=== PATIENT | male | born 1955 ===

== ENCOUNTER 2016-12-10 20:26 | Inpatient (IN) | payer MEDICARE, MEDICAID ==
[2016-12-10 20:37] VITALS: BMI 29.5
[2016-12-10] MEDS ORDERED: HEPARIN SODIUM PORCINE 5000 UNIT SC SCH (23:45)
--- NOTE | 2016-12-10 23:51 | CP.PCM.HP ---
History of Present Illness - History of Present Illness History of Present Illness: CC: Rehab after CVA (L mid frontal lobe) HPI: 61 y/o male with MHx significant for HTN, HLD, ?CKD4 and DM2 who comes to [facility] from [place] for rehab after he was admitted there for CVA as well as for a UTI. Briefly, patient was admitted to [facility] on 12/06/16 for slurred speech of sudden onset upon waking from sleep. He did not receive TPA. He had imaging consistent with CVA, and continues to have some slurred speech but denies any assymetric weakness or gait abnormality. Was noted to apparently have seizures and started on AEDs. He is not a very clear historian. Denies any CP/SOB at this time. Only other complaint is L knee pain which he says is chronic. CT head at [facility]: no acute findings MRI: L mid frontal lobe infarct Carotid dopplers: 20-39% proximal ICA stenoses EEG b/l diffuse cerebral dysfunction ROS: 14 systems reviewed, negative other than HPI MHx: DM2, HTN, HLD, back pain, ?CKD4, and ?seizures new onset SHx: b/l knee surgeries, failed LUE fistula Allergies: NKDA Medications: As per med rec Family Hx: unable to provide any relevant family history upon review Social Hx: Lives at home with family, does drink EtOH but does not quantify amount, no tobacco Surrogate: As per chart, Lo Dos Santos Present on Admission - Present on Admission Any Indicators Present on Admission: No Past Patient History - Past Medical History & Family History Past Medical History?: Yes - Past Social History Smoking Status: Former Smoker - CARDIAC Hx Hypercholesterolemia: Yes Hx Hypertension: Yes - NEUROLOGICAL HX Cerebrovascular Accident: Yes (12/04/2016: Acute infarct @Left midfrontal lobe ) - HEENT Other/Comment: - Vision changes left eye x 2 months; seen retinal specialist. - RENAL Hx Chronic Kidney Disease: Yes (Renal disease (not on HD)) Hx Dialysis: No Hx Kidney Stones: No Hx Neurogenic Bladder: No Hx Pyelonephritis: No Hx Renal (Kidney) Cancer: No Hx Renal Failure: No Other/Comment: - Left arm shunt non-function x 3 years - ENDOCRINE/METABOLIC Hx Diabetes Mellitus Type 2: Yes - HEMATOLOGICAL/ONCOLOGICAL Hx Blood Transfusions: Yes Hx Blood Transfusion Reaction: No - MUSCULOSKELETAL/RHEUMATOLOGICAL Hx Arthritis: Yes (Affects her hands and knees) Hx Back Pain: Yes (Chronic Back Pain (has "Sciatica")) Hx Falls: No Hx Gout: Yes - PSYCHIATRIC Hx Substance Use: No - SURGICAL HISTORY Other/Comment: - left AV shunt - ANESTHESIA Hx Anesthesia: Yes Hx Anesthesia Reactions: No Hx Malignant Hyperthermia: No Has any member of the family had a problem w/ anesthesia?: No Meds Allergies/Adverse Reactions: Allergies Allergy/AdvReac Type Severity Reaction Status Date / Time No Known Allergies Allergy Verified 12/10/16 20:37 Physical Exam - Constitutional Appears: No Acute Distress - Head Exam Head Exam: ATRAUMATIC, NORMOCEPHALIC - Eye Exam Eye Exam: EOMI, PERRL - ENT Exam ENT Exam: Mucous Membranes Moist - Neck Exam Neck exam: Positive for: Full Rom - Respiratory Exam Respiratory Exam: Clear to Auscultation Bilateral, NORMAL BREATHING PATTERN - Cardiovascular Exam Cardiovascular Exam: REGULAR RHYTHM, +S1, +S2 - GI/Abdominal Exam GI & Abdominal Exam: Normal Bowel Sounds, Soft - Extremities Exam Additional comments: senior applications architect is weak, but it appears to be so bilaterally-- unclear if patient is making full effort, LE exam difficult as patient c/o knee pain when trying to assess LLE - Neurological Exam Neurological exam: Alert, CN II-XII Intact, Oriented x3 Additional comments: Possible slurred speech, but not clear what patient's baseline is - Psychiatric Exam Psychiatric exam: Normal Affect, Normal Mood Results - Labs Labs: Laboratory Results - last 24 hr 12/10/16 21:57 POC Glucose (mg/dL) 89 Assessment & Plan (1) CVA (cerebral vascular accident) Assessment and Plan: 61 y/o male s/p R CVA with residual speech deficits and possible L sided weakness. 1) CVA/HTN/HLDSeizures -Cont ASA, Statin -Cont current BP medications for now; titrate as indicated based on BP -Speech eval -PT eval -Modified dysphagia diet -Continue Keppra for seizures 500 PO BID -Consult neuro 2) DM2 -A1c in AM -Full labs to check for renal function and liver function in AM -If taking good PO in AM, can consider starting LA insulin vs PO agent 3) UTI -- continue ampicillin as started in [facility] for UTI 4) DVT PPx -- SQ Heparin for now Status: Acute (2) HTN (hypertension) Status: Acute (3) HLD (hyperlipidemia) Status: Acute (4) DM2 (diabetes mellitus, type 2) Status: Acute (5) DVT prophylaxis Status: Acute
[2016-12-11] MEDS: Insulin Lispro (humaLOG) 100 Units/ml Inj SC SCH ×4 (06:30→22:00)
[2016-12-11 07:59] LABS: ALB/GLOB RATIO 0.7 (1.0-2.1); BILIRUBIN,TOTAL 0.6 mg/dl (0.2-1.3); CALCIUM 9.7 mg/dL (8.4-10.2); POTASSIUM 4.5 MMOL/L (3.6-5.0); TOTAL PROTEIN 8.1 G/DL (6.3-8.2)
[2016-12-11 08:06] LABS: HEMATOCRIT 29.9 % (35.0-51.0); MEAN CELL VOLUME 84.4 fl (80.0-94.0); MEAN CORPUSCULAR HEMOGLOBIN 27.6 pg (27.0-31.0); MEAN CORPUSCULAR HGB CONC 32.7 g/dL (33.0-37.0); RED CELL DISTRIBUTION WIDTH 16.7 % (11.5-14.5); WHITE BLOOD COUNT 7.9 K/uL (4.8-10.8)
[2016-12-11] MEDS: Lidocaine 5% Patch TD SCH (08:37)
[2016-12-11] MEDS ORDERED: Patient's Own Med (Ferrous Sulfate [Feosol] 324 MG) PO SCH (09:00)
[2016-12-11] MEDS ORDERED: NEBIVOLOL 5 MG PO SCH (09:00)
[2016-12-11 09:15] LABS: PARTIAL THROMBOPLASTIN TIME 36.9 SECONDS (23.3-32.5)
--- NOTE | 2016-12-11 15:40 | CP.PCM.PN ---
Subjective - Date & Time of Evaluation Date of Evaluation: 12/11/16 Time of Evaluation: 15:39 - Subjective Subjective: left CVA right HP Objective - Vital Signs/Intake and Output Vital Signs (last 24 hours): Temp Pulse Resp BP Pulse Ox 98.4 F 98 H 20 122/72 97 12/11/16 08:20 12/11/16 08:43 12/11/16 08:20 12/11/16 08:43 12/11/16 08:12 - Medications Medications: Current Medications Acetaminophen (Tylenol 325mg Tab) 650 mg PO Q6H PRN PRN Reason: .Pain (4-10) Last Admin: 12/11/16 07:20 Dose: 650 mg Ampicillin (Ampicillin) 250 mg PO QID [facility] Last Admin: 12/11/16 11:30 Dose: 250 mg Aspirin (Ecotrin) 81 mg PO DAILY [facility] Last Admin: 12/11/16 08:37 Dose: 81 mg Atorvastatin Calcium (Lipitor) 40 mg PO DIN [facility] Docusate Sodium (Colace) 100 mg PO BID [facility] Last Admin: 12/11/16 08:37 Dose: 100 mg Fenofibrate (Tricor) 145 mg PO DAILY [facility] Last Admin: 12/11/16 10:13 Dose: 145 mg Ferrous Sulfate (Feosol) 325 mg PO BID [facility] Last Admin: 12/11/16 08:37 Dose: 325 mg Heparin Sodium (Porcine) (Heparin) 5,000 units SC Q8 [facility] PRN Reason: Protocol Last Admin: 12/11/16 11:29 Dose: 5,000 units Insulin Human Lispro (Humalog) 0 units SC ACHS [facility] PRN Reason: Protocol Last Admin: 12/11/16 11:30 Dose: Not Given Levetiracetam (Keppra) 500 mg PO BID [facility] Last Admin: 12/11/16 11:29 Dose: 500 mg Lidocaine (Lidoderm) 1 ea TD DAILY [facility] Last Admin: 12/11/16 08:37 Dose: 1 ea Metoprolol Tartrate (Lopressor) 25 mg PO Q12 [facility] Last Admin: 12/11/16 08:43 Dose: 25 mg Sodium Bicarbonate (Sodium Bicarbonate Tab) 650 mg PO DAILY [facility] Last Admin: 12/11/16 11:29 Dose: 650 mg - Labs Labs: 12/11/16 07:16 12/11/16 07:16 PT 12.0 SECONDS (9.6-11.2) H 12/11/16 07:16 INR 1.15 (0.92-1.08) H 12/11/16 07:16 APTT 36.9 SECONDS (23.3-32.5) H 12/11/16 07:16 Physiatry Overall Plan of Care - Overall Plan of Care Estimated Length of Stay in Weeks: 3 Rehab Impairment: Mobility, Gait, Balance, Coordination Etiologic Diagnosis: Cerebrovascular Accident (compounded by left LE gout symptoms) Rehab/Medical Prognosis: Fair - Anticipated Interventions Physical Therapy:: Yes Occupational Therapy:: Yes Speech Therapy:: No Recreational Therapy:: Yes - Therapy Goals Bed Mobility: Supervision Ambulation: Supervision Functional Positional Changes:: Supervision - Discharge Plan Discharge Destination: Home
--- NOTE | 2016-12-11 15:42 | CP.PCM.CON ---
History of Present Illness - History of Present Illness History of Present Illness: Dr Lebron PMR consultation on Caleb Fajardo, born 1955, who has been admitted to [facility] for acute inpatient rehabilitation. His presentation is complicated by a left LE gout flare up. Review of Systems - Constitutional Constitutional: absent: Anorexia, Chills - EENT Ears: absent: Ear Discharge, Ear Pain, Tinnitus Nose/Mouth/Throat: absent: Epistaxis, Nasal Congestion - Cardiovascular Cardiovascular: absent: Chest Pain, Chest Pain at Rest - Respiratory Respiratory: absent: Dyspnea, Hemoptysis - Gastrointestinal Gastrointestinal: absent: Abdominal Pain, Belching - Musculoskeletal Musculoskeletal: Arthralgias - Integumentary Integumentary: absent: Bleeding Lesions - Neurological Neurological: absent: Abnormal Movements, Paresthesias, Radicular Pain Past Patient History - Past Medical History & Family History Past Medical History?: Yes - Past Social History Smoking Status: Former Smoker Home Situation {Lives}: With Family - CARDIAC Hx Hypercholesterolemia: Yes Hx Hypertension: Yes - NEUROLOGICAL HX Cerebrovascular Accident: Yes (12/04/2016: Acute infarct @Left midfrontal lobe ) - HEENT Other/Comment: - Vision changes left eye x 2 months; seen retinal specialist. - RENAL Hx Chronic Kidney Disease: Yes (Renal disease (not on HD)) Hx Dialysis: No Hx Kidney Stones: No Hx Neurogenic Bladder: No Hx Pyelonephritis: No Hx Renal (Kidney) Cancer: No Hx Renal Failure: No Other/Comment: - Left arm shunt non-function x 3 years - ENDOCRINE/METABOLIC Hx Diabetes Mellitus Type 2: Yes - HEMATOLOGICAL/ONCOLOGICAL Hx Blood Transfusions: Yes Hx Blood Transfusion Reaction: No - MUSCULOSKELETAL/RHEUMATOLOGICAL Hx Arthritis: Yes (Affects her hands and knees) Hx Back Pain: Yes (Chronic Back Pain (has "Sciatica")) Hx Falls: No Hx Gout: Yes - PSYCHIATRIC Hx Substance Use: No - SURGICAL HISTORY Other/Comment: - left AV shunt - ANESTHESIA Hx Anesthesia: Yes Hx Anesthesia Reactions: No Hx Malignant Hyperthermia: No Has any member of the family had a problem w/ anesthesia?: No Meds Allergies/Adverse Reactions: Allergies Allergy/AdvReac Type Severity Reaction Status Date / Time No Known Allergies Allergy Verified 12/10/16 20:37 - Medications Medications: Current Medications Acetaminophen (Tylenol 325mg Tab) 650 mg PO Q6H PRN PRN Reason: .Pain (4-10) Last Admin: 12/11/16 07:20 Dose: 650 mg Ampicillin (Ampicillin) 250 mg PO QID [facility] Last Admin: 12/11/16 11:30 Dose: 250 mg Aspirin (Ecotrin) 81 mg PO DAILY [facility] Last Admin: 12/11/16 08:37 Dose: 81 mg Atorvastatin Calcium (Lipitor) 40 mg PO DIN [facility] Docusate Sodium (Colace) 100 mg PO BID [facility] Last Admin: 12/11/16 08:37 Dose: 100 mg Fenofibrate (Tricor) 145 mg PO DAILY [facility] Last Admin: 12/11/16 10:13 Dose: 145 mg Ferrous Sulfate (Feosol) 325 mg PO BID [facility] Last Admin: 12/11/16 08:37 Dose: 325 mg Heparin Sodium (Porcine) (Heparin) 5,000 units SC Q8 [facility] PRN Reason: Protocol Last Admin: 12/11/16 11:29 Dose: 5,000 units Insulin Human Lispro (Humalog) 0 units SC ACHS [facility] PRN Reason: Protocol Last Admin: 12/11/16 11:30 Dose: Not Given Levetiracetam (Keppra) 500 mg PO BID [facility] Last Admin: 12/11/16 11:29 Dose: 500 mg Lidocaine (Lidoderm) 1 ea TD DAILY [facility] Last Admin: 12/11/16 08:37 Dose: 1 ea Metoprolol Tartrate (Lopressor) 25 mg PO Q12 [facility] Last Admin: 12/11/16 08:43 Dose: 25 mg Sodium Bicarbonate (Sodium Bicarbonate Tab) 650 mg PO DAILY [facility] Last Admin: 12/11/16 11:29 Dose: 650 mg Physical Exam - Constitutional Appears: Non-toxic, No Acute Distress - Head Exam Head Exam: ATRAUMATIC, NORMAL INSPECTION, NORMOCEPHALIC - Eye Exam Eye Exam: EOMI - ENT Exam ENT Exam: Mucous Membranes Moist - Respiratory Exam Respiratory Exam: NORMAL BREATHING PATTERN - Cardiovascular Exam Cardiovascular Exam: REGULAR RHYTHM - GI/Abdominal Exam GI & Abdominal Exam: absent: Distended, Firm - Extremities Exam Extremities exam: Positive for: joint swelling (left knee and ankle pain) - Neurological Exam Neurological exam: Alert, CN II-XII Intact, Oriented x3 - Psychiatric Exam Psychiatric exam: Normal Affect, Normal Mood Results - Vital Signs Recent Vital Signs: Last Vital Signs Temp 98.4 F 12/11/16 08:20 Pulse 98 H 12/11/16 08:43 Resp 20 12/11/16 08:20 BP 122/72 12/11/16 08:43 Pulse Ox 97 12/11/16 08:12 - Labs Result Diagrams: 12/11/16 07:16 12/11/16 07:16 Labs: Laboratory Results - last 24 hr 12/10/16 12/11/16 12/11/16 21:57 06:12 07:16 WBC 7.9 RBC 3.54 L Hgb 9.8 L Hct 29.9 L MCV 84.4 MCH 27.6 MCHC 32.7 L RDW 16.7 H Plt Count 312 PT 12.0 H INR 1.15 H APTT 36.9 H Sodium 142 Potassium 4.5 Chloride 106 Carbon Dioxide 19 L Anion Gap 22 H BUN 48 H Creatinine 2.5 H Est GFR ( Amer) 32 Est GFR (Non-Af Amer) 26 POC Glucose (mg/dL) 89 94 Random Glucose 105 Calcium 9.7 Total Bilirubin 0.6 AST 52 ALT 35 Alkaline Phosphatase 151 H Total Protein 8.1 Albumin 3.3 L Globulin 4.8 H Albumin/Globulin Ratio 0.7 L 12/11/16 11:09 WBC RBC Hgb Hct MCV MCH MCHC RDW Plt Count PT INR APTT Sodium Potassium Chloride Carbon Dioxide Anion Gap BUN Creatinine Est GFR ( Amer) Est GFR (Non-Af Amer) POC Glucose (mg/dL) 114 H Random Glucose Calcium Total Bilirubin AST ALT Alkaline Phosphatase Total Protein Albumin Globulin Albumin/Globulin Ratio Assessment & Plan - Assessment and Plan (Free Text) Assessment: Patient is a left CVA right HP doing ok left knee pain and I offered him an injection early next week if still with pain and not relieved with the medications PT/OT to continue to help increase functional independence Team conference for d/c planning Pain: left knee, possible injection Vascular: no evidence of DVT GI: No evidence of constipation or diarrhea Patient is an excellent acute rehabilitation candidate and will have focused pain management, PT, OT and recreational therapy to help facilitate a safe and appropriate d/c plan impairment code 01.2
--- NOTE | 2016-12-11 16:24 | CP.PCM.PN ---
Subjective - Date & Time of Evaluation Date of Evaluation: 12/11/16 Time of Evaluation: 14:00 - Subjective Subjective: Pt seen and examined. Denied any complaint. Objective - Vital Signs/Intake and Output Vital Signs (last 24 hours): Temp Pulse Resp BP Pulse Ox 98.0 F 89 22 126/72 98 12/11/16 16:00 12/11/16 16:00 12/11/16 16:00 12/11/16 16:00 12/11/16 16:00 - Medications Medications: Current Medications Acetaminophen (Tylenol 325mg Tab) 650 mg PO Q6H PRN PRN Reason: .Pain (4-10) Last Admin: 12/11/16 07:20 Dose: 650 mg Ampicillin (Ampicillin) 250 mg PO QID [facility] Last Admin: 12/11/16 16:05 Dose: 250 mg Aspirin (Ecotrin) 81 mg PO DAILY [facility] Last Admin: 12/11/16 08:37 Dose: 81 mg Atorvastatin Calcium (Lipitor) 40 mg PO DIN [facility] Docusate Sodium (Colace) 100 mg PO BID [facility] Last Admin: 12/11/16 16:06 Dose: Not Given Fenofibrate (Tricor) 145 mg PO DAILY [facility] Last Admin: 12/11/16 10:13 Dose: 145 mg Ferrous Sulfate (Feosol) 325 mg PO BID [facility] Last Admin: 12/11/16 08:37 Dose: 325 mg Heparin Sodium (Porcine) (Heparin) 5,000 units SC Q8 [facility] PRN Reason: Protocol Last Admin: 12/11/16 16:16 Dose: Not Given Insulin Human Lispro (Humalog) 0 units SC ACHS [facility] PRN Reason: Protocol Last Admin: 12/11/16 11:30 Dose: Not Given Levetiracetam (Keppra) 500 mg PO BID [facility] Last Admin: 12/11/16 11:29 Dose: 500 mg Lidocaine (Lidoderm) 1 ea TD DAILY [facility] Last Admin: 12/11/16 08:37 Dose: 1 ea Metoprolol Tartrate (Lopressor) 25 mg PO Q12 [facility] Last Admin: 12/11/16 08:43 Dose: 25 mg Sodium Bicarbonate (Sodium Bicarbonate Tab) 650 mg PO DAILY [facility] Last Admin: 12/11/16 11:29 Dose: 650 mg - Labs Labs: 12/11/16 07:16 12/11/16 07:16 PT 12.0 SECONDS (9.6-11.2) H 12/11/16 07:16 INR 1.15 (0.92-1.08) H 12/11/16 07:16 APTT 36.9 SECONDS (23.3-32.5) H 12/11/16 07:16 - Constitutional Appears: No Acute Distress - Head Exam Head Exam: ATRAUMATIC - Eye Exam Eye Exam: absent: Scleral icterus - ENT Exam ENT Exam: Mucous Membranes Moist - Neck Exam Neck Exam: absent: Meningismus - Respiratory Exam Respiratory Exam: absent: Rhonchi, Wheezes, Respiratory Distress - Cardiovascular Exam Cardiovascular Exam: REGULAR RHYTHM, +S1, +S2 - GI/Abdominal Exam GI & Abdominal Exam: Soft. absent: Tenderness - Rectal Exam Rectal Exam: Deferred - Neurological Exam Neurological Exam: Alert, Oriented x3 - Psychiatric Exam Psychiatric exam: Normal Affect - Skin Skin Exam: Dry, Intact Assessment and Plan (1) CVA (cerebral vascular accident) Status: Acute (2) HTN (hypertension) Status: Chronic (3) HLD (hyperlipidemia) Status: Chronic (4) DM2 (diabetes mellitus, type 2) Status: Chronic (5) DVT prophylaxis Status: Acute - Assessment and Plan (Free Text) Assessment: 61 yo male with history of HTN, HLD and DM2 admitted [facility] because of sudden onset of slurring of speech. Imaging was consistent with acute CVA. Patient was sent to Acute Rehab for continued management and PT. Patient was also noted to have seizure (1) CVA (cerebral vascular accident) Cont ASA, Statin tolerating PT, OT and Speech therapy Modified dysphagia diet Continue Keppra 500 PO BID (2) DM2 (diabetes mellitus, type 2) BS controlled continue diabetic diet (3) UTI continue Ampicillin 250mg PO QID repeat urinalysis and urine C&S (4) HTN (hypertension) BP stable continue Metoprolol 25mg PO q 12hrs (5) HLD (hyperlipidemia) on Lipitor, Tricor
--- NOTE | 2016-12-11 17:07 | CP.PCM.CON ---
History of Present Illness - History of Present Illness History of Present Illness: 61 year old male with PMHx of HTN, HLD, DM2, CKD was seen at bedside regarding elongated toenails. Patient also states that he has arthritis is in left knee and it is hard to move his left lower extremity. He denies having a edge banding off bearer and does not know when the last time his nails were trimmed. He denies any pain to his digits. He denies n/v/f/c/sob/cp. Past Patient History - Past Medical History & Family History Past Medical History?: Yes - Past Social History Smoking Status: Former Smoker Home Situation {Lives}: With Family - CARDIAC Hx Hypercholesterolemia: Yes Hx Hypertension: Yes - NEUROLOGICAL HX Cerebrovascular Accident: Yes (12/04/2016: Acute infarct @Left midfrontal lobe ) - HEENT Other/Comment: - Vision changes left eye x 2 months; seen retinal specialist. - RENAL Hx Chronic Kidney Disease: Yes (Renal disease (not on HD)) Hx Dialysis: No Hx Kidney Stones: No Hx Neurogenic Bladder: No Hx Pyelonephritis: No Hx Renal (Kidney) Cancer: No Hx Renal Failure: No Other/Comment: - Left arm shunt non-function x 3 years - ENDOCRINE/METABOLIC Hx Diabetes Mellitus Type 2: Yes - HEMATOLOGICAL/ONCOLOGICAL Hx Blood Transfusions: Yes Hx Blood Transfusion Reaction: No - MUSCULOSKELETAL/RHEUMATOLOGICAL Hx Arthritis: Yes (Affects her hands and knees) Hx Back Pain: Yes (Chronic Back Pain (has "Sciatica")) Hx Falls: No Hx Gout: Yes - PSYCHIATRIC Hx Substance Use: No - SURGICAL HISTORY Other/Comment: - left AV shunt - ANESTHESIA Hx Anesthesia: Yes Hx Anesthesia Reactions: No Hx Malignant Hyperthermia: No Has any member of the family had a problem w/ anesthesia?: No Meds Allergies/Adverse Reactions: Allergies Allergy/AdvReac Type Severity Reaction Status Date / Time No Known Allergies Allergy Verified 12/10/16 20:37 - Medications Medications: Current Medications Acetaminophen (Tylenol 325mg Tab) 650 mg PO Q6H PRN PRN Reason: .Pain (4-10) Last Admin: 12/11/16 07:20 Dose: 650 mg Ampicillin (Ampicillin) 250 mg PO QID [facility] Last Admin: 12/11/16 16:05 Dose: 250 mg Aspirin (Ecotrin) 81 mg PO DAILY [facility] Last Admin: 12/11/16 08:37 Dose: 81 mg Atorvastatin Calcium (Lipitor) 40 mg PO DIN [facility] Docusate Sodium (Colace) 100 mg PO BID [facility] Last Admin: 12/11/16 16:06 Dose: Not Given Fenofibrate (Tricor) 145 mg PO DAILY [facility] Last Admin: 12/11/16 10:13 Dose: 145 mg Ferrous Sulfate (Feosol) 325 mg PO BID [facility] Last Admin: 12/11/16 08:37 Dose: 325 mg Heparin Sodium (Porcine) (Heparin) 5,000 units SC Q8 [facility] PRN Reason: Protocol Last Admin: 12/11/16 16:16 Dose: Not Given Insulin Human Lispro (Humalog) 0 units SC ACHS [facility] PRN Reason: Protocol Last Admin: 12/11/16 11:30 Dose: Not Given Levetiracetam (Keppra) 500 mg PO BID [facility] Last Admin: 12/11/16 11:29 Dose: 500 mg Lidocaine (Lidoderm) 1 ea TD DAILY [facility] Last Admin: 12/11/16 08:37 Dose: 1 ea Metoprolol Tartrate (Lopressor) 25 mg PO Q12 [facility] Last Admin: 12/11/16 08:43 Dose: 25 mg Pantoprazole Sodium (Protonix Ec Tab) 40 mg PO DAILY [facility] Sodium Bicarbonate (Sodium Bicarbonate Tab) 650 mg PO DAILY [facility] Last Admin: 12/11/16 11:29 Dose: 650 mg Physical Exam - Constitutional Appears: Well, Non-toxic, No Acute Distress - Extremities Exam Additional comments: Vasc: DP and PT pulses palpable 2/4 b/l. Skin temperature warm to cool from proximal to distal b/l. CFT < 3 seconds to all digits b/l. No edema noted to b/ l LE Neuro: Gross sensation intact b/l. Derm: Nails 1-5 b/l are thickened, distrophic and elongated. Webspaces 1-5 are clean, dry, intact. No open lesions noted Ortho:No pain on palpation to nails 1-5 b/l. No gross deformities noted. - Neurological Exam Neurological exam: Alert, Oriented x3 - Psychiatric Exam Psychiatric exam: Normal Affect, Normal Mood Results - Vital Signs Recent Vital Signs: Last Vital Signs Temp 98.0 F 12/11/16 16:00 Pulse 89 12/11/16 16:00 Resp 22 12/11/16 16:00 BP 126/72 12/11/16 16:00 Pulse Ox 98 12/11/16 16:00 - Labs Result Diagrams: 12/11/16 07:16 12/11/16 07:16 Labs: Laboratory Results - last 24 hr 12/10/16 12/11/16 12/11/16 21:57 06:12 07:16 WBC 7.9 RBC 3.54 L Hgb 9.8 L Hct 29.9 L MCV 84.4 MCH 27.6 MCHC 32.7 L RDW 16.7 H Plt Count 312 PT 12.0 H INR 1.15 H APTT 36.9 H Sodium 142 Potassium 4.5 Chloride 106 Carbon Dioxide 19 L Anion Gap 22 H BUN 48 H Creatinine 2.5 H Est GFR ( Amer) 32 Est GFR (Non-Af Amer) 26 POC Glucose (mg/dL) 89 94 Random Glucose 105 Hemoglobin A1c 6.5 Calcium 9.7 Total Bilirubin 0.6 AST 52 ALT 35 Alkaline Phosphatase 151 H Total Protein 8.1 Albumin 3.3 L Globulin 4.8 H Albumin/Globulin Ratio 0.7 L 12/11/16 11:09 WBC RBC Hgb Hct MCV MCH MCHC RDW Plt Count PT INR APTT Sodium Potassium Chloride Carbon Dioxide Anion Gap BUN Creatinine Est GFR ( Amer) Est GFR (Non-Af Amer) POC Glucose (mg/dL) 114 H Random Glucose Hemoglobin A1c Calcium Total Bilirubin AST ALT Alkaline Phosphatase Total Protein Albumin Globulin Albumin/Globulin Ratio Assessment & Plan - Assessment and Plan (Free Text) Assessment: 61 year old male with elongated toenails 1-5 b/l Plan: Patient examined and evaluated Chart and vitals reviewed Discussed in detail with attending, Dr. Lucas Nails 1-5 b/l were debrided in thickness and in length with nail nippers without incident Thank you for allowing us to care for your patient Please re-consult as needed
[2016-12-11] MEDS: Pantoprazole 40 mg EC Tab PO SCH (19:06)
[2016-12-12] MEDS: Insulin Lispro (humaLOG) 100 Units/ml Inj SC SCH ×4 (07:30→21:05)
[2016-12-12] MEDS: Lidocaine 5% Patch TD SCH (08:16)
[2016-12-12] MEDS: Pantoprazole 40 mg EC Tab PO SCH (08:17)
[2016-12-13] MEDS: Insulin Lispro (humaLOG) 100 Units/ml Inj SC SCH ×4 (06:38→21:00)
[2016-12-13] MEDS: Lidocaine 5% Patch TD SCH (08:46)
[2016-12-13] MEDS: Pantoprazole 40 mg EC Tab PO SCH (09:20)
[2016-12-14] MEDS: Insulin Lispro (humaLOG) 100 Units/ml Inj SC SCH ×2 (06:30→12:32)
[2016-12-14] MEDS: Lidocaine 5% Patch TD SCH (08:59)
[2016-12-14] MEDS: Pantoprazole 40 mg EC Tab PO SCH (09:00)
--- NOTE | 2016-12-14 13:52 | CON ---
DATE: 12/14/2016 CHIEF COMPLAINT: Recent infarct in the left mid frontal lobe, status post expressive aphasia. HISTORY OF PRESENT ILLNESS: This 59-year-old man is well known to me from [facility] where he was admitted for slurred speech and mild right-sided weakness with history of hypertension, hyperlipi demia and type 2 diabetes mellitus and was found to have an acute left mid frontal lobe infarct, whic h is the cause of his left expressive aphasia and mild right-sided weakness. During his hospital cou rse at [facility], he had seizures secondary to left frontal lobe infarct for which he was plac ed on Keppra 500 mg p.o. b.i.d. Currently, he is transferred to [facility] for reha bilitation for occupational, speech and physical therapy, which he is doing well. He has not had any recent seizures. He is stable on Keppra 500 mg p.o. b.i.d. He is found to have uncontrolled diabet es, but his diabetes is being controlled with insulin sliding scale. He is on aspirin 81 mg, Lipitor 40 mg p.o. daily for stroke prevention and his blood pressures have been stable since he has been in the hospital. He still has mild expressive aphasia. PAST MEDICAL HISTORY: Hyperlipidemia, hypertension, type 2 diabetes mellitus with recent left mid f rontal lobe infarct causing expressive aphasia. REVIEW OF SYSTEMS: A 14-point review of systems is negative except for the HPI. MEDICATIONS: Reviewed via nurse's reconciliation sheet. FAMILY HISTORY: Noncontributory. SOCIAL HISTORY: No illicit drug use, smoking, or ETOH abuse. PHYSICAL EXAMINATION: VITAL SIGNS: Temperature 97.5, pulse rate of 112, blood pressure 122/83, respiratory rate 20, oxygen 98% on room air. GENERAL: The patient is sitting up in bed in no acute distress. HEENT: Atraumatic, normocephalic. PERRLA. Extraocular muscles intact. NECK: Supple, no JVD, no adenopathy noted. LUNGS: Clear to auscultation. No adventitious sounds. HEART: S1, S2, normal rate and rhythm. No murmurs, rubs, or gallops. ABDOMEN: Soft, nontender, nondistended. Bowel sounds are present. EXTREMITIES: No clubbing, no cyanosis. Peripheral pulses 2+ felt bilaterally. NEUROLOGIC: The patient is alert, oriented to person, place, month and year. Speech has expressive aphasia. Cranial nerves II-XII are otherwise intact. MOTOR: Moves all extremities except for mild right 4+ to 5-/5 on the right side, otherwise left side is intact. Toes are upgoing bilaterally. SENSORY: Decreased to light touch and pinprick up to calves bilaterally, vibration of the toes . DTRs 2+ throughout. COORDINATION: [id number] intact. GAIT: Deferred for now. LABORATORIES: Sodium blood sugar is 126. 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 He had a seizure during his hospital course at [facility] secondary to an acute left mid fr ontal lobe infarct. He was placed on Keppra 500 mg p.o. b.i.d. At this time, his acute left mid frontal lobe infarct is secondary to diffuse atherosclerotic disease from underlying hypertension, dyslipidemia, and the seizures are secondary to acute left middle fron thien lobe stroke. At this time, recommend: 1. Aspirin 81 mg, Lipitor 40 mg p.o. daily for stroke prevention. 2. Continue with Keppra 500 mg p.o. daily for underlying seizures from cerebrovascular accident. 3. Keep his blood sugars insulin sliding scale, diabetic diet. 4. Speech therapy, occupational therapy and physical therapy for patient with stroke. 5. Keep the blood pressure between 120-130 mmHg and monitor his heart rate for underlying tachycardi a. 6. For his urinary tract infection, continue his ampicillin 250 mg p.o. q.i.d., and continue with cu rrent present medical management. 7. No further neurological workup at this time. Garo House MD cc: [id number] TT: 12/14/2016 13:51:48 Confirmation # [id number] Dictation # [id number] dn
--- NOTE | 2016-12-14 17:27 | CP.PCM.PN ---
Subjective - Date & Time of Evaluation Date of Evaluation: 12/14/16 Time of Evaluation: 17:25 - Subjective Subjective: Hospitalist Progress Note (Patient was seen and examined at 5:25 PM 12/14/16 625- 1) 61 y/o male (PMHx significant for HTN, HLD, CKD4 and DM2) who came to [facility] from [place] for rehab after he was admitted there for CVA as well as for a UTI. Briefly, patient was admitted to [facility] on 12/06/16 for slurred speech of sudden onset upon waking from sleep. He did not receive TPA. He had imaging consistent with CVA, and continued to have some slurred speech upon presentation to [facility] but denies any assymetric weakness or gait abnormality. Was noted to apparently have seizures and started on AEDs. CT head at [facility]: no acute findings MRI: L mid frontal lobe infarct Carotid dopplers: 20-39% proximal ICA stenoses EEG b/l diffuse cerebral dysfunction ROS Chronic LBP that is pinching in nature especially if sitting for prolonged time and then moving to try and get up (past 4 months) Chronic Left Knee Pain NO other complaints upon FULL ROS Exam: General: AAOx3, NAD HEENT: NCA, EOMI, PERRLA, NO cervical lymphadenopathy, NO thyromegaly, NO pharyngeal erythema/exudate, Oral Mucosa and Nasal Turbinates are moist Cardiology: NS1 and NS2, NO M/R/G Respiratory: CTA B/L, NO R/R/W GI: BSx4, Soft, NT, Central Obesity (could not adequately palpate the liver and spleen), NO guarding/rebound tenderness Ext: Pulses are strong and equal, NO edema, Capillary Refill is 2 seconds Neurology: CN II through XII are grossly intact. I did not notice slurred speech. 5/5 strength with flexion and extension in B/L UE and LE (although hesitant on the left secondary to left knee pain) Assessment and Plan: 1). CVA ASA 81 mg PO 1x/day Lipitor 40 mg PO QHS Tricor 145 mg PO 1x/day 2). Hx HTN [place] 25 mg PO Q12H 3). Hx Seizure Keppra 500 mg PO 2x/day 4). Hx DM 2 Lispro ISS at 6:30 AM 5). Hx UTI Ampicillin 250 mg PO QID Repeat Urine Culture ordered and if negative then discontinue the Ampicillin 6). Hx Gout Colchicine 0.3 mg PO 1x/day 7). Hx Anemia Secondary to CKD Feosol 325 mg PO 2x/day HgB/Hct Stable 7). Prophylactic Measures Tylenol 650 mg PO Q6H PRN Pain 4-10 Colace 100 mg PO 2x/day Hepparin 5,000 Units SQ Q8H Lidoderm 1 patch TD 1x/day to Left Knee Protonix 40 mg PO 1x/day Sodium Bicarbonate 650 mg PO 1x/day Objective - Vital Signs/Intake and Output Vital Signs (last 24 hours): Temp Pulse Resp BP Pulse Ox 96.8 F L 98 H 20 122/86 98 12/14/16 16:16 12/14/16 16:16 12/14/16 16:16 12/14/16 16:16 12/14/16 16:16 - Medications Medications: Current Medications Acetaminophen (Tylenol 325mg Tab) 650 mg PO Q6H PRN PRN Reason: .Pain (4-10) Last Admin: 12/14/16 09:46 Dose: 650 mg Ampicillin (Ampicillin) 250 mg PO QID [facility] Last Admin: 12/14/16 17:07 Dose: 250 mg Aspirin (Ecotrin) 81 mg PO DAILY [facility] Last Admin: 12/14/16 09:00 Dose: 81 mg Atorvastatin Calcium (Lipitor) 40 mg PO DIN [facility] Last Admin: 12/14/16 17:08 Dose: 40 mg Colchicine (Colchicine) 0.3 mg PO DAILY [facility] Docusate Sodium (Colace) 100 mg PO BID [facility] Last Admin: 12/14/16 17:07 Dose: Not Given Fenofibrate (Tricor) 145 mg PO DAILY [facility] Last Admin: 12/14/16 09:00 Dose: 145 mg Ferrous Sulfate (Feosol) 325 mg PO BID [facility] Last Admin: 12/14/16 17:07 Dose: 325 mg Heparin Sodium (Porcine) (Heparin) 5,000 units SC Q8 [facility] PRN Reason: Protocol Last Admin: 12/14/16 13:12 Dose: 5,000 units Insulin Human Lispro (Humalog) 0 units SC 0630 [facility] PRN Reason: Protocol Levetiracetam (Keppra) 500 mg PO BID [facility] Last Admin: 12/14/16 17:07 Dose: 500 mg Lidocaine (Lidoderm) 1 ea TD DAILY [facility] Last Admin: 12/14/16 08:59 Dose: 1 ea Metoprolol Tartrate (Lopressor) 25 mg PO Q12 [facility] Last Admin: 12/14/16 09:00 Dose: 25 mg Pantoprazole Sodium (Protonix Ec Tab) 40 mg PO DAILY [facility] Last Admin: 12/14/16 09:00 Dose: 40 mg Sodium Bicarbonate (Sodium Bicarbonate Tab) 650 mg PO DAILY [facility] Last Admin: 12/14/16 09:00 Dose: 650 mg - Labs Labs: 12/11/16 07:16 12/11/16 07:16 PT 12.0 SECONDS (9.6-11.2) H 12/11/16 07:16 INR 1.15 (0.92-1.08) H 12/11/16 07:16 APTT 36.9 SECONDS (23.3-32.5) H 12/11/16 07:16
[2016-12-15] MEDS: Insulin Lispro (humaLOG) 100 Units/ml Inj SC SCH (06:01)
[2016-12-15 06:16] LABS: BASO # 0.1 K/uL (0.0-0.2); BASO % 0.8 % (0.0-2.0); EOS # 0.8 K/uL (0.0-0.7); EOS % 7.3 % (0.0-4.0); HEMATOCRIT 33.6 % (35.0-51.0); LYMPH % 27.6 % (20.0-40.0); MEAN CELL VOLUME 83.8 fl (80.0-94.0); MEAN CORPUSCULAR HEMOGLOBIN 27.7 pg (27.0-31.0); MEAN PLATELET VOLUME 8.1 fl (7.2-11.7); MONO # 1.2 K/uL (0.0-0.8); MONO % 10.8 % (0.0-10.0); NEUT # 5.7 K/uL (1.8-7.0); NEUT % 53.5 % (50.0-75.0); NRBC % 0.1 % (0.0-0.0); RED CELL DISTRIBUTION WIDTH 16.8 % (11.5-14.5); WHITE BLOOD COUNT 10.7 K/uL (4.8-10.8)
[2016-12-15 06:28] LABS: CALCIUM 10.1 mg/dL (8.4-10.2)
[2016-12-15 06:30] LABS: POTASSIUM 5.2 MMOL/L (3.6-5.0)
[2016-12-15 06:40] LABS: IRON 61 ug/dL (49-181)
[2016-12-15] MEDS: Lidocaine 5% Patch TD SCH (08:42)
[2016-12-15] MEDS: Pantoprazole 40 mg EC Tab PO SCH (08:42)
[2016-12-15] MEDS: Sodium Chloride 0.9% 1,000 ML IV SCH ×2 (12:51→23:05)
--- NOTE | 2016-12-15 13:13 | PSY.TMCNF ---
Nursing - Vital Signs Vital Signs (Last 8 hours): Vital Signs 12/15/16 12/15/16 12/15/16 07:22 08:45 09:07 Temperature 97.3 F L 97.5 F L Pulse Rate 96 H 115 H 86 Respiratory 20 19 Rate Blood Pressure 138/84 124/76 113/64 O2 Sat by Pulse 96 Oximetry 12/15/16 10:41 Temperature Pulse Rate 113 H Respiratory Rate Blood Pressure O2 Sat by Pulse Oximetry Pain: 0 - Precautions: Precautions: Fall Prevention - Medications/Other Issues Comment: Safety precautions - Consults Comment: Dr. House, Dr. Lebron, Podiatry consult - Toileting Toileting: Dependent - Bladder Management Bladder Pattern: Normal Voiding Method: Urinal - Bowel Management Bowel Pattern: Diarrhea Bowel Management: Dependent Frequency of Accidents: 3 - Transfers Transfers: Maximal Assistance - ADL's ADL's: Maximal Assistance - Patient/Family Teaching Comments: CARE POST CVA AND SAFETY PRECAUTIONS - Goals/Time Frame Comments: PER MULTIDISCIPLINARY CARE PLAN GOALS Physical Therapy - Bed Mobility Bed Mobility: Supervision, Verbal Cues, Contact Guard Comment: CG for supine to sit for trunk control. -encouraged to utilize log rolling due to back pain - Transfers Sit to Stand: Supervision, Verbal Cues - Ambulation Level of Assistance: Supervision, Verbal Cues Distance (ft.): 150 Assistive Devices: Rolling Walker - Stair Negotiation Stairs: Level of Assistance: Not Tested - Standing Balance Static Stand: Contact Guard Assist Dynamic Stand: Minimal Assistance Comment: RW - Pain Management Techniques: Medication, Position Change, Distraction, Inactivity - Insight/Carryover Insight/Carryover: Fair - Patient/Family Education Comment: Patient and his have been educated about DME, safety, stroke rehabilitation, OT goals and plan of care. Both expresed understanding. - Assessment/Plan Assessment: Caleb Fajardo presents with: 1.) moderate deficits in cognitive- linguistic skills as evidenced by decreased responsive naming, orientation, safety awareness/reasoning and thought organization; 2) mild dysarthria characterized by slow, halting and slurred speech negatively impacting speech intelligibility at times; and 3.) mild oral dysphagia characterized by slow, reduced mastication with mild oral stasis with regular solids; pt able to adequately manage mechanical soft bite size solids and thin liquids as evidenced by no overt s/s dysphagia/aspiration noted. Recommend maintenance of bite size diet with thin liquids with strict aspiration precautions. Pt would benefit from continued speech and dysphagia tx for improved cognition, intelligibility, and swallow function. - Goals Timeframe: 2 weeks Goals: Modified independent with functional transfers. Supervision/setup assistance with ADLs - Provider Therapist: Melodie Alvarenga PT, DPT4 License Number: [id number] Occupational Therapy - Arousal/Attention/Orientation Patient Orientation: Person, Place - ADL/IADL Self Feeding: Supervision, Set-up Help Grooming: Supervision, Set-up Help Dressing-Upper Extremity: Supervision, Set-up Help Dressing-Lower Extremity: Maximum Assistance - Sitting Balance Static Sitting: Independent without upper extremity support Dynamic Sitting: Reaches across midline, Reaches within base of support, Requires supervision - Transfers Wheelchair to Bed Transfers: Contact Guard, Minimal Assistance Toilet Transfers: Contact Guard, Minimal Assistance - Wheelchair Management Level of Assistance: Contact Guard - Upper Extremity Status Right Upper Extremity Comment: ROM = WFL Left Upper Extremity Comment: ROM = WFL - Pain Alleviating Techniques: Medication, Position Change, Distraction, Inactivity - Insight/Carryover Insight/Carryover: Fair - Patient/Family Education Comment: Patient and his have been educated about DME, safety, stroke rehabilitation, OT goals and plan of care. Both expresed understanding. - Assessment/Plan Assessment: Caleb Fajardo presents with: 1.) moderate deficits in cognitive- linguistic skills as evidenced by decreased responsive naming, orientation, safety awareness/reasoning and thought organization; 2) mild dysarthria characterized by slow, halting and slurred speech negatively impacting speech intelligibility at times; and 3.) mild oral dysphagia characterized by slow, reduced mastication with mild oral stasis with regular solids; pt able to adequately manage mechanical soft bite size solids and thin liquids as evidenced by no overt s/s dysphagia/aspiration noted. Recommend maintenance of bite size diet with thin liquids with strict aspiration precautions. Pt would benefit from continued speech and dysphagia tx for improved cognition, intelligibility, and swallow function. - Goals Timeframe: 2 weeks Goals: Modified independent with functional transfers. Supervision/setup assistance with ADLs - Provider Therapist: Raghu Shultz MS, OTR/L License Number: [id number] Speech Therapy - Consult Information Patient on Program: Yes Medical Diagnosis: CVA Treatment Diagnosis: 1.) moderate cognitive linguistic deficits. 2.) mild dysarthria. 3.) mild oral dysphagia - Assessment Expressive Language Impairment: Moderate Problem Solving Impairment: Moderate Speech/Articulation Impairment: Mild Dysphagia/Swallowing Impairment: Mild Comment: bite-sized/thin liquids - Plan Assessment: Caleb Fajardo presents with: 1.) moderate deficits in cognitive- linguistic skills as evidenced by decreased responsive naming, orientation, safety awareness/reasoning and thought organization; 2) mild dysarthria characterized by slow, halting and slurred speech negatively impacting speech intelligibility at times; and 3.) mild oral dysphagia characterized by slow, reduced mastication with mild oral stasis with regular solids; pt able to adequately manage mechanical soft bite size solids and thin liquids as evidenced by no overt s/s dysphagia/aspiration noted. Recommend maintenance of bite size diet with thin liquids with strict aspiration precautions. Pt would benefit from continued speech and dysphagia tx for improved cognition, intelligibility, and swallow function. Plan: Continue Speech/Language Therapy Frequency: 3-5 times per week Duration: 1 week Goals/Timeframe: Please see IE completed 12/11/16 for goals/POC Recommendations: -Continue speech and dysphagia tx 3-5x/week. - Maintain bite- sized solids/thin liquids; aspiration precautions - Provider Therapist: Shabnam Sneed License Number: [id number] Recreational Therapy - Participation Participation: Participates in Individual and/or Group Sessions - Attendance Attendance: 3-5 times per week - Activities Leisure Activities: Cards and Games - Socialization Level of Socialization: Initiates/interacts freely with care givers and peer - Assessment Assessment/Plan: Caleb Fajardo presents with: 1.) moderate deficits in cognitive-linguistic skills as evidenced by decreased responsive naming, orientation, safety awareness/reasoning and thought organization; 2) mild dysarthria characterized by slow, halting and slurred speech negatively impacting speech intelligibility at times; and 3.) mild oral dysphagia characterized by slow, reduced mastication with mild oral stasis with regular solids; pt able to adequately manage mechanical soft bite size solids and thin liquids as evidenced by no overt s/s dysphagia/aspiration noted. Recommend maintenance of bite size diet with thin liquids with strict aspiration precautions. Pt would benefit from continued speech and dysphagia tx for improved cognition, intelligibility, and swallow function. - Provider Therapist: Rita Daniel, [employer] #[id number] Nutrition - Current Diet Current Diet/ Supplement/ Feedings: Moderate consistent CHO advanced bite size thin liquids - Appetite Percent Meal Consumed: 50-74% - Comments Comments: CARE POST CVA AND SAFETY PRECAUTIONS - Assessment/Goals/Time Frame Assessment/Goals/Time Frame: Safety precautions - Provider Provider: Follow-up due on 12/18/2016 Case Management - Discharge Plan Discharge Plan: Home with significant other/family Rehabilitation Plan - Treatment Plan Treatment Plan: Physical Therapy, Occupational Therapy, Speech, Dietary, Pain Management, Patient/Family Education - Discharge Plan Estimated Date of Discharge: 12/26/16 Discharge to: Home
--- NOTE | 2016-12-15 17:34 | CP.PCM.PN ---
Subjective - Date & Time of Evaluation Date of Evaluation: 12/15/16 Time of Evaluation: 17:31 - Subjective Subjective: Patient seen in room with family present complaining of LBP aware that neuro does not want stronger pain medications for him at this point He is motivated and working hard in therapies continue current care Objective - Vital Signs/Intake and Output Vital Signs (last 24 hours): Temp Pulse Resp BP Pulse Ox 97.6 F 87 20 115/77 97 12/15/16 15:58 12/15/16 15:58 12/15/16 15:58 12/15/16 15:58 12/15/16 15:58 - Medications Medications: Current Medications Acetaminophen (Tylenol 325mg Tab) 650 mg PO Q6H PRN PRN Reason: .Pain (4-10) Last Admin: 12/15/16 14:22 Dose: 650 mg Ampicillin (Ampicillin) 250 mg PO QID [facility] Last Admin: 12/15/16 17:27 Dose: 250 mg Aspirin (Ecotrin) 81 mg PO DAILY [facility] Last Admin: 12/15/16 08:42 Dose: 81 mg Atorvastatin Calcium (Lipitor) 40 mg PO DIN [facility] Last Admin: 12/15/16 17:28 Dose: 40 mg Colchicine (Colocrys) 0.3 mg PO DAILY [facility] Last Admin: 12/15/16 08:41 Dose: 0.3 mg Cyclobenzaprine HCl (Flexeril) 10 mg PO Q6 [facility] Cyclobenzaprine HCl (Flexeril) 10 mg PO Q4 [facility] Stop: 12/16/16 16:01 Docusate Sodium (Colace) 100 mg PO BID [facility] Last Admin: 12/15/16 17:27 Dose: Not Given Fenofibrate (Tricor) 145 mg PO DAILY [facility] Last Admin: 12/15/16 08:42 Dose: 145 mg Ferrous Sulfate (Feosol) 325 mg PO BID [facility] Last Admin: 12/15/16 17:28 Dose: 325 mg Heparin Sodium (Porcine) (Heparin) 5,000 units SC Q8 [facility] PRN Reason: Protocol Last Admin: 12/15/16 13:05 Dose: 5,000 units Sodium Chloride (Sodium Chloride 0.9%) 1,000 mls @ 100 mls/hr IV .Q10H [facility] Stop: 12/16/16 12:01 Last Admin: 12/15/16 12:51 Dose: 100 mls/hr Insulin Human Lispro (Humalog) 0 units SC 0630 [facility] PRN Reason: Protocol Last Admin: 12/15/16 06:01 Dose: Not Given Levetiracetam (Keppra) 500 mg PO BID [facility] Last Admin: 12/15/16 17:28 Dose: 500 mg Lidocaine (Lidoderm) 1 ea TD DAILY [facility] Last Admin: 12/15/16 08:42 Dose: 1 ea Metoprolol Tartrate (Lopressor) 25 mg PO Q12 [facility] Last Admin: 12/15/16 08:45 Dose: 25 mg Pantoprazole Sodium (Protonix Ec Tab) 40 mg PO DAILY [facility] Last Admin: 12/15/16 08:42 Dose: 40 mg Sodium Bicarbonate (Sodium Bicarbonate Tab) 650 mg PO DAILY [facility] Last Admin: 12/15/16 08:42 Dose: 650 mg - Labs Labs: 12/15/16 05:00 12/15/16 05:00 PT 12.0 SECONDS (9.6-11.2) H 12/11/16 07:16 INR 1.15 (0.92-1.08) H 12/11/16 07:16 APTT 36.9 SECONDS (23.3-32.5) H 12/11/16 07:16
[2016-12-16] MEDS: Insulin Lispro (humaLOG) 100 Units/ml Inj SC SCH (06:17)
[2016-12-16 07:19] LABS: CALCIUM 9.4 mg/dL (8.4-10.2); POTASSIUM 4.8 MMOL/L (3.6-5.0)
[2016-12-16] MEDS: Sodium Chloride 0.9% 1,000 ML IV SCH ×2 (08:32→19:50)
[2016-12-16] MEDS: Lidocaine 5% Patch TD SCH (08:37)
[2016-12-16] MEDS: Pantoprazole 40 mg EC Tab PO SCH (08:38)
[2016-12-16] MEDS ORDERED: Sodium Chloride 0.9% 1,000 ML IV SCH (12:00)
--- NOTE | 2016-12-16 19:00 | CP.PCM.CON ---
History of Present Illness - History of Present Illness History of Present Illness: pt seen and examined, full consult is dictated #[id number] 1. LORRIE on ckd 2. htn 3. met. acidosis 4. nephrocalcinosis r/o medullary sponge kidney 5. sub acute cva add [id number] 650 mg po tid agree with ivf 1/2 ns at 100 ml/hr check po4, pth intact, hept.b,c serology bmp in am Past Patient History - Infectious Disease Hx of Infectious Diseases: None - Past Medical History & Family History Past Medical History?: Yes - Past Social History Smoking Status: Former Smoker Home Situation {Lives}: With Family - CARDIAC Hx Hypercholesterolemia: Yes Hx Hypertension: Yes - PULMONARY Hx Chronic Obstructive Pulmonary Disease (COPD): No - NEUROLOGICAL HX Cerebrovascular Accident: Yes (12/04/2016: Acute infarct @Left midfrontal lobe ) - HEENT Other/Comment: - Vision changes left eye x 2 months; seen retinal specialist. - RENAL Hx Chronic Kidney Disease: Yes (Renal disease (not on HD)) Hx Dialysis: No Hx Kidney Stones: No Hx Neurogenic Bladder: No Hx Pyelonephritis: No Hx Renal (Kidney) Cancer: No Hx Renal Failure: No Other/Comment: - Left arm shunt non-function x 3 years - ENDOCRINE/METABOLIC Hx Diabetes Mellitus Type 2: Yes - HEMATOLOGICAL/ONCOLOGICAL Hx Blood Transfusions: Yes Hx Blood Transfusion Reaction: No - INTEGUMENTARY Other/Comment: SCARRING TO BILATERAL KNEE HAS H/O OF SURGERY - MUSCULOSKELETAL/RHEUMATOLOGICAL Hx Arthritis: Yes (Affects her hands and knees) Hx Back Pain: Yes (Chronic Back Pain (has "Sciatica")) Hx Falls: No Hx Gout: Yes - GASTROINTESTINAL Hx Gastrointestinal Disorders: No Hx Gastroesophageal Reflux: No - GENITOURINARY/GYNECOLOGICAL Hx Genitourinary Disorders: No - PSYCHIATRIC Hx Substance Use: No - SURGICAL HISTORY Other/Comment: - left AV shunt - ANESTHESIA Hx Anesthesia: Yes Hx Anesthesia Reactions: No Hx Malignant Hyperthermia: No Has any member of the family had a problem w/ anesthesia?: No Meds Allergies/Adverse Reactions: Allergies Allergy/AdvReac Type Severity Reaction Status Date / Time No Known Allergies Allergy Verified 12/10/16 20:37 - Medications Medications: Current Medications Acetaminophen (Tylenol 325mg Tab) 650 mg PO Q6H PRN PRN Reason: .Pain (4-10) Last Admin: 12/16/16 09:48 Dose: 650 mg Aspirin (Ecotrin) 81 mg PO DAILY [facility] Last Admin: 12/16/16 08:38 Dose: 81 mg Atorvastatin Calcium (Lipitor) 40 mg PO DIN [facility] Last Admin: 12/16/16 17:07 Dose: 40 mg Colchicine (Colocrys) 0.3 mg PO DAILY [facility] Last Admin: 12/16/16 08:35 Dose: 0.3 mg Cyclobenzaprine HCl (Flexeril) 10 mg PO Q6 [facility] Docusate Sodium (Colace) 100 mg PO BID [facility] Last Admin: 12/16/16 17:07 Dose: Not Given Fenofibrate (Tricor) 145 mg PO DAILY [facility] Last Admin: 12/16/16 08:38 Dose: 145 mg Ferrous Sulfate (Feosol) 325 mg PO BID [facility] Last Admin: 12/16/16 17:08 Dose: 325 mg Heparin Sodium (Porcine) (Heparin) 5,000 units SC Q8 [facility] PRN Reason: Protocol Last Admin: 12/16/16 12:59 Dose: 5,000 units Sodium Chloride (Sodium Chloride 0.9%) 1,000 mls @ 100 mls/hr IV .Q10H [facility] Stop: 12/17/16 12:01 Last Admin: 12/16/16 12:01 Dose: 100 mls/hr Insulin Human Lispro (Humalog) 0 units SC 0630 [facility] PRN Reason: Protocol Last Admin: 12/16/16 06:17 Dose: Not Given Levetiracetam (Keppra) 500 mg PO BID [facility] Last Admin: 12/16/16 17:08 Dose: 500 mg Lidocaine (Lidoderm) 1 ea TD DAILY [facility] Last Admin: 12/16/16 08:37 Dose: 1 ea Metoprolol Tartrate (Lopressor) 25 mg PO Q12 [facility] Last Admin: 12/16/16 08:36 Dose: 25 mg Pantoprazole Sodium (Protonix Ec Tab) 40 mg PO DAILY [facility] Last Admin: 12/16/16 08:38 Dose: 40 mg Sodium Bicarbonate (Sodium Bicarbonate Tab) 650 mg PO DAILY [facility] Last Admin: 12/16/16 08:36 Dose: 650 mg Results - Vital Signs Recent Vital Signs: Last Vital Signs Temp 97.2 F L 12/16/16 15:33 Pulse 96 H 12/16/16 15:33 Resp 20 12/16/16 15:33 BP 122/78 12/16/16 15:33 Pulse Ox 99 12/16/16 15:33 - Labs Result Diagrams: 12/15/16 05:00 12/16/16 06:40 Labs: Laboratory Results - last 24 hr 12/16/16 12/16/16 06:14 06:40 Sodium 138 Potassium 4.8 Chloride 107 Carbon Dioxide 17 L Anion Gap 19 BUN 67 H Creatinine 2.9 H Est GFR ( Amer) 27 Est GFR (Non-Af Amer) 22 POC Glucose (mg/dL) 109 Random Glucose 105 Calcium 9.4
--- NOTE | 2016-12-16 19:26 | CP.PCM.PN ---
Subjective - Date & Time of Evaluation Date of Evaluation: 12/16/16 Time of Evaluation: 14:20 - Subjective Subjective: Pt seen and examined. Denied any complaint. Objective - Vital Signs/Intake and Output Vital Signs (last 24 hours): Temp Pulse Resp BP Pulse Ox 97.2 F L 96 H 20 122/78 99 12/16/16 15:33 12/16/16 15:33 12/16/16 15:33 12/16/16 15:33 12/16/16 15:33 Intake and Output: 12/16/16 12/17/16 18:59 06:59 Intake Total 1720 Output Total 1500 Balance 220 - Medications Medications: Current Medications Acetaminophen (Tylenol 325mg Tab) 650 mg PO Q6H PRN PRN Reason: .Pain (4-10) Last Admin: 12/16/16 09:48 Dose: 650 mg Aspirin (Ecotrin) 81 mg PO DAILY [facility] Last Admin: 12/16/16 08:38 Dose: 81 mg Atorvastatin Calcium (Lipitor) 40 mg PO DIN [facility] Last Admin: 12/16/16 17:07 Dose: 40 mg Colchicine (Colocrys) 0.3 mg PO DAILY [facility] Last Admin: 12/16/16 08:35 Dose: 0.3 mg Cyclobenzaprine HCl (Flexeril) 10 mg PO Q6 [facility] Docusate Sodium (Colace) 100 mg PO BID [facility] Last Admin: 12/16/16 17:07 Dose: Not Given Fenofibrate (Tricor) 145 mg PO DAILY [facility] Last Admin: 12/16/16 08:38 Dose: 145 mg Ferrous Sulfate (Feosol) 325 mg PO BID [facility] Last Admin: 12/16/16 17:08 Dose: 325 mg Heparin Sodium (Porcine) (Heparin) 5,000 units SC Q8 [facility] PRN Reason: Protocol Last Admin: 12/16/16 12:59 Dose: 5,000 units Sodium Chloride (Sodium Chloride 0.9%) 1,000 mls @ 100 mls/hr IV .Q10H [facility] Stop: 12/17/16 12:01 Last Admin: 12/16/16 12:01 Dose: 100 mls/hr Insulin Human Lispro (Humalog) 0 units SC 0630 [facility] PRN Reason: Protocol Last Admin: 12/16/16 06:17 Dose: Not Given Levetiracetam (Keppra) 500 mg PO BID [facility] Last Admin: 12/16/16 17:08 Dose: 500 mg Lidocaine (Lidoderm) 1 ea TD DAILY [facility] Last Admin: 12/16/16 08:37 Dose: 1 ea Metoprolol Tartrate (Lopressor) 25 mg PO Q12 [facility] Last Admin: 12/16/16 08:36 Dose: 25 mg Pantoprazole Sodium (Protonix Ec Tab) 40 mg PO DAILY [facility] Last Admin: 12/16/16 08:38 Dose: 40 mg Sodium Bicarbonate (Sodium Bicarbonate Tab) 650 mg PO DAILY [facility] Last Admin: 12/16/16 08:36 Dose: 650 mg - Labs Labs: 12/15/16 05:00 12/16/16 06:40 PT 12.0 SECONDS (9.6-11.2) H 12/11/16 07:16 INR 1.15 (0.92-1.08) H 12/11/16 07:16 APTT 36.9 SECONDS (23.3-32.5) H 12/11/16 07:16 - Constitutional Appears: No Acute Distress - Head Exam Head Exam: ATRAUMATIC - Eye Exam Eye Exam: absent: Scleral icterus - ENT Exam ENT Exam: Mucous Membranes Moist - Neck Exam Neck Exam: absent: Meningismus - Respiratory Exam Respiratory Exam: absent: Rhonchi, Wheezes, Respiratory Distress - Cardiovascular Exam Cardiovascular Exam: REGULAR RHYTHM, +S1, +S2 - GI/Abdominal Exam GI & Abdominal Exam: Soft. absent: Tenderness - Rectal Exam Rectal Exam: Deferred - Neurological Exam Neurological Exam: Alert, Oriented x3 - Psychiatric Exam Psychiatric exam: Normal Affect - Skin Skin Exam: Dry, Intact Assessment and Plan (1) CVA (cerebral vascular accident) Status: Acute (2) HTN (hypertension) Status: Chronic (3) HLD (hyperlipidemia) Status: Chronic (4) DM2 (diabetes mellitus, type 2) Status: Chronic (5) DVT prophylaxis Status: Acute - Assessment and Plan (Free Text) Assessment: 61 yo male with history of HTN, HLD and DM2 admitted to [facility] because of sudden onset of slurring of speech. Imaging was consistent with acute CVA. Patient was sent to Acute Rehab for continued management and PT. Patient was also noted to have seizure (1) CVA (cerebral vascular accident) Cont ASA 81mg, Lipitor 40mg tolerating PT, OT and Speech therapy Modified dysphagia diet (2) Seizure Continue Keppra 500 PO BID (3) DM2 (diabetes mellitus, type 2) BS controlled without medication continue diabetic diet (4) UTI completed 5 day course of Ampicillin 250mg repeat urine culture has no growth (5) HTN (hypertension) BP stable continue Metoprolol 25mg PO q 12hrs (6) HLD (hyperlipidemia) on Lipitor, Tricor
--- NOTE | 2016-12-17 00:35 | CON ---
DATE: 12/16/2016 The patient is located in acute rehabilitation room 625, bed 1. REQUESTING PHYSICIAN: Dr. Rick Arambula. REASON FOR RENAL CONSULTATION: CKD and for further evaluation. HISTORY OF PRESENT ILLNESS: The patient is a 61-year-old elderly male with a past medical history significant for diabetes for 5 years and hypertension for 5 years, CKD, gout, hyperlipidemia who was recently admitted to [facility] with symptoms of acute CVA and also history of problems with eyes and seen a retinal specialist in the past, who was admitted to [facility] on 12/06/2016 for acute CVA. Subsequently, the patient was transferred to acute rehabilitation in [facility] and renal consult requested for evaluation. The patient is not in acute distress. As per the patient, initially had weakness on the left upper extremity, left lower extremity and slurred. Speech is improving now after the treatment as per the patient. The patient denies any headache, dizziness. Denies any chest pain, palpitation. Denies any fever or cough. No abdominal pain, no nausea, vomiting, diarrhea. No dysuria or frequency, no edema of the legs. PAST MEDICAL HISTORY: Significant for hypertension for 5 years, diabetes for 5 years, chronic kidney disease, hyperlipidemia, gout and sciatica, chronic back pain. PAST SURGICAL HISTORY: Status post left upper extremity AV fistula, which is thrombosed and nonfunctioning, clotted left upper extremity AV fistula. ALLERGIES: No known drug allergies. CURRENT MEDICATIONS: Include as follows: Colace 100 mg p.o. b.i.d., colchicine 0.3 mg p.o. daily, aspirin 81 mg daily, Feosol 325 mg p.o. b.i.d., subQ heparin 5000 q. 8 hours, Humalog for sliding scale, Keppra 500 mg p.o. b.i.d., Lidoderm patch transdermal daily, Lipitor 40 mg p.o. at bedtime, metoprolol 25 mg p.o. q. 12 hours, Protonix 40 mg p.o. daily, sodium bicarb 650 mg p.o. daily, fenofibrate 145 mg p.o. daily, Tylenol 650 mg p.o. q. 6 hours. SOCIAL HISTORY: Denies any smoking, alcohol or drug abuse. PERSONAL HISTORY: He lives with a partner for 20 years. No children. FAMILY HISTORY: Noncontributory for the patient's medical condition. REVIEW OF SYSTEMS: Significant for left-sided weakness and recent slurred speech. All other review of systems are reviewed and are negative. PHYSICAL EXAMINATION: VITAL SIGNS: Blood pressure 122/78, pulse 96, respirations 20, temperature 97.2 , saturation 99%. Height 5 feet 3 inches and weight is 166 pounds. GENERAL: The patient is a 61-year-old elderly male, moderately built, moderately nourished, not in acute distress. HEENT: Pupils normal, reactive to light and accommodation. Conjunctivae pink. Sclerae anicteric. Tongue is moist. NECK: Trachea midline. LUNGS: Symmetric on both sides. Bilateral breath sounds present. Clear on auscultation. CARDIOVASCULAR: [place] in the fifth intercostal space midclavicular line. S1 and S2 audible. No murmur, no gallop. ABDOMEN: Normal in appearance, soft, tympanic. No guarding, no rigidity. No hepatosplenomegaly. CENTRAL NERVOUS SYSTEM: The patient is alert, awake, oriented x 3. Cranial nerves II through XII grossly intact. Sensory system is within normal limits. Motor power 4/5 on the left side, 5/5 on the right side. EXTREMITIES: No cyanosis, no clubbing, no edema. LABORATORY DATA: Include as follows: As of 12/15/2016, WBC 10.7, hemoglobin 11.1, hematocrit is 33.6, platelets 436. Sodium is 143, potassium 5.2, chloride 104, CO2 of 18, BUN 74, creatinine 3.3, and glucose is 121, calcium 10.1, iron 61, and TIBC 242. Iron saturation 25, ferritin is 1411 and 1430. His repeat Chem-7 as of 12/16/2016: Sodium 138, potassium 4.8, chloride 107, CO2 of 17, BUN 67, creatinine 2.9, glucose 105, calcium 9.4. As of 12/11/2016: BUN and creatinine 48/2.5. Review of other labs from the recent hospital admission in the [facility]: Ultrasound of the kidneys as of 12/09/2016, right kidney measures 9.4 x 5.7 x 6.6 cm, overall echogenicity of the right kidney appears subnormally increased, markedly heterogeneous with multiple calcified focus suspect, and the left kidney measures 10.1 x 5.3 x 5.6 cm, similar appearance of the left renal parenchymal that is described in the right kidney is also noted. Impression: Bilateral echogenicity in the renal parenchyma with bilateral numerous nonobstructing renal calculi. The bilateral renal calculi appear cortical related medical renal disease with renal calculi and renal cortical atrophy are suspected, no hydronephrosis noted. Other laboratory reports: Serology, HIV 1 and 2 and T antibodies is negative. Urinalysis as of 12/09/2016, yellow, clear, pH 6, specific gravity 1.020, protein 100, glucose negative, ketones negative, blood small, nitrites negative , bilirubin negative, urobilinogen 1.0, leukocyte esterase negative. Urine random total protein 1474 mg/gram creatinine. Other reports: CT of the head as of 12/04/2016, no acute intracranial pathology identified. MRI of the brain as of 12/04/2016, there is an acute infarct in the left middle frontal lobe measuring 15 mm x 38 mm on diffusion , series 3 IMPRESSION: Acute infarct in the left mid frontal lobe. SUMMARY: The patient is a 61-year-old male with a history of hypertension, diabetes, chronic kidney disease, hyperlipidemia, gout, status post left upper extremity AV fistula, which is thrombosed, was admitted with slurred speech and left upper extremity and lower extremity weakness and slurred speech. MRI of the brain 12/04/2016 consistent with acute infarct in the left mid frontal lobe and increased BUN and creatinine and proteinuria. Ultrasound of the kidneys with bilateral cortical renal calculi, multiple nonobstructing. 1. Acute renal failure on chronic kidney disease, most likely secondary to intravascular volume depletion and dehydration, decreased p.o. intake. 2. Hypertension. Blood pressure is stable. Continue his current medication. 3. Diabetes. 4. Acute cerebrovascular accident. Plan: Continue IV fluids half normal saline at 100 mL per hour and repeat BMP in the a.m. Renal function is slowly improving. 5. Bilateral cortical calcification, multiple. Rule out medullary sponge kidney versus nephrocalcinosis. We will check hepatitis B and C serology and also PTH intact level. We will add sodium bicarbonate 650 mg p.o. t.i.d. and also we will check PTH intact level and phosphorus in the a.m. We will follow with you. Thank you for allowing me to participate in your patient's care. Mamta Neff MD cc: [id number] TT: 12/17/2016 00:35:44 Confirmation # [id number] Dictation # [id number] mn [email or web address]
[2016-12-17] MEDS: Insulin Lispro (humaLOG) 100 Units/ml Inj SC SCH (05:32)
[2016-12-17] MEDS: Sodium Chloride 0.9% 1,000 ML IV SCH (05:47)
[2016-12-17] MEDS: Pantoprazole 40 mg EC Tab PO SCH (08:15)
[2016-12-17] MEDS: Lidocaine 5% Patch TD SCH (08:17)
[2016-12-17] MEDS ORDERED: Oxycodone/Acetaminophen 5/325 mg Tab PO ONE (09:46)
[2016-12-17] MEDS ORDERED: Oxycodone/Acetaminophen 5/325 mg Tab PO PRN (09:48)
--- NOTE | 2016-12-17 09:48 | CP.PCM.PN ---
Subjective - Date & Time of Evaluation Date of Evaluation: 12/17/16 Time of Evaluation: 09:47 - Subjective Subjective: pt seen and examined, follow up consult is dictated #[id number] c/o severe lower back pain and unable to stand up percocet 5/325 mg 1 tabpo q 8 hrs prn for pain, hold for sedation continue ivf 1/2 ns at 80 ml/hr c/w [id number] 650 mg po tid Objective - Vital Signs/Intake and Output Vital Signs (last 24 hours): Temp Pulse Resp BP Pulse Ox 98 F 69 20 144/77 98 12/17/16 09:26 12/17/16 09:26 12/17/16 09:26 12/17/16 09:26 12/17/16 09:26 Intake and Output: 12/17/16 12/17/16 06:59 18:59 Intake Total 1920 1920 Output Total 1500 1500 Balance 420 420 - Medications Medications: Current Medications Acetaminophen (Tylenol 325mg Tab) 650 mg PO Q6H PRN PRN Reason: .Pain (4-10) Last Admin: 12/17/16 09:19 Dose: 650 mg Aspirin (Ecotrin) 81 mg PO DAILY [facility] Last Admin: 12/17/16 08:15 Dose: 81 mg Atorvastatin Calcium (Lipitor) 40 mg PO DIN [facility] Last Admin: 12/16/16 17:07 Dose: 40 mg Colchicine (Colocrys) 0.3 mg PO DAILY [facility] Last Admin: 12/17/16 08:16 Dose: 0.3 mg Cyclobenzaprine HCl (Flexeril) 10 mg PO Q6 [facility] Last Admin: 12/17/16 05:48 Dose: 10 mg Docusate Sodium (Colace) 100 mg PO BID [facility] Last Admin: 12/17/16 08:15 Dose: Not Given Fenofibrate (Tricor) 145 mg PO DAILY [facility] Last Admin: 12/17/16 08:16 Dose: 145 mg Ferrous Sulfate (Feosol) 325 mg PO BID [facility] Last Admin: 12/17/16 08:15 Dose: 325 mg Heparin Sodium (Porcine) (Heparin) 5,000 units SC Q8 [facility] PRN Reason: Protocol Last Admin: 12/17/16 05:48 Dose: 5,000 units Sodium Chloride (Sodium Chloride 0.9%) 1,000 mls @ 100 mls/hr IV .Q10H [facility] Stop: 12/17/16 19:46 Last Admin: 12/17/16 05:47 Dose: 100 mls/hr Insulin Human Lispro (Humalog) 0 units SC 0630 [facility] PRN Reason: Protocol Last Admin: 12/17/16 05:32 Dose: Not Given Levetiracetam (Keppra) 500 mg PO BID [facility] Last Admin: 12/17/16 08:16 Dose: 500 mg Lidocaine (Lidoderm) 1 ea TD DAILY [facility] Last Admin: 12/17/16 08:17 Dose: 1 ea Metoprolol Tartrate (Lopressor) 25 mg PO Q12 [facility] Last Admin: 12/17/16 08:20 Dose: 25 mg Pantoprazole Sodium (Protonix Ec Tab) 40 mg PO DAILY [facility] Last Admin: 12/17/16 08:15 Dose: 40 mg Sodium Bicarbonate (Sodium Bicarbonate Tab) 650 mg PO DAILY [facility] Last Admin: 12/17/16 08:18 Dose: 650 mg - Labs Labs: 12/15/16 05:00 12/16/16 06:40 PT 12.0 SECONDS (9.6-11.2) H 12/11/16 07:16 INR 1.15 (0.92-1.08) H 12/11/16 07:16 APTT 36.9 SECONDS (23.3-32.5) H 12/11/16 07:16
[2016-12-17] MEDS ORDERED: Sodium Chloride 0.9% 1,000 ML IV SCH (10:00)
[2016-12-17 10:07] LABS: CALCIUM 9.5 mg/dL (8.4-10.2); POTASSIUM 4.9 MMOL/L (3.6-5.0)
[2016-12-17] MEDS ORDERED: Sodium Chloride 0.45% 1,000 ML IV SCH (10:15)
[2016-12-17] MEDS: Sodium Chloride 0.45% 1,000 ML IV SCH ×2 (10:23→22:38)
--- NOTE | 2016-12-17 22:19 | PN ---
DATE: 12/17/2016 The patient is located in room 625, bed 1. REQUESTING PHYSICIAN: Dr. Rick Arambula. REASON FOR RENAL CONSULTATION: Acute renal failure, chronic kidney disease. HISTORY OF PRESENT ILLNESS: The patient is a 61-year-old elderly male with history of longs tanding hypertension, diabetes, hyperlipidemia, chronic low back pain, status post cerebrovascular ac cident was admitted from the [facility] to acute rehab for physical therapy. The patient was seen and examined in physical therapy. The patient was complaining of severe pain and unable to stand and unable to participate in physical therapy this morning. The patient denies any headache, dizziness. Denies any chest pain, palpitations. Denies any swelling of the legs. No nausea, vomiti ng, or diarrhea. PHYSICAL EXAMINATION: VITAL SIGNS: Blood pressure 144/77, pulse 69, respirations 20, temperature 98, saturation 98%. Heig ht 5 feet 3 inches and weight is 166 pounds. GENERAL: The patient, as is a 61-year-old male, moderately built, moderately nourished, not in acute distress, but complains of moderate to severe pain in the back. HEENT: Pupils normal, reactive to light and accommodation. Conjunctivae pink. Sclerae anicteric. Tongue is moist. NECK: Trachea midline. LUNGS: Symmetric on both sides. Bilateral breath sounds present. Clear on auscultation. CARDIOVASCULAR: [place] at the fifth intercostal space midclavicular line. S1 and S2 audible. No murm ur or gallop. ABDOMEN: Normal in appearance, soft, tympanic. No guarding, no rigidity. No hepatosplenomegaly. CENTRAL NERVOUS SYSTEM: The patient is alert, awake, oriented x 2-3. Sensory system is grossly with in normal limits. Motor system: Power on the left side 4-5 x 5, right-sided 5 x 5. EXTREMITIES: No cyanosis, no clubbing, no edema. CURRENT MEDICATIONS: Include Colace 100 mg p.o. b.i.d., colchicine 0.3 mg p.o. daily, Ecotrin 81 mg daily, Feosol 325 mg p.o. b.i.d., Flexeril 10 mg p.o. q. 6 hours, subQ heparin 5000 q. 8 hours, Humal og for sliding scale, Keppra 500 mg p.o. b.i.d., Lidoderm patch 1 topical daily, Lipitor 40 mg p.o. d aily, Lopressor 25 mg p.o. q. 12 hours, Protonix 40 mg daily, sodium bicarbonate 650 p.o. daily, IV f luids, normal saline 100 mL per hour, Tricor 140 mg p.o. daily, Tylenol. LABORATORY DATA: Include as follows as of 12/17/2016: Sodium 144, potassium 4.9, chloride 110 and CO 2 of 16, BUN 53, creatinine 2.4, glucose 93, calcium 9.5. C3 is 126, C4 is 73.9. Hepatitis B surfac e antibody is negative and hep C antibody is negative. SUMMARY: The patient is a 61-year-old elderly male with history of longstanding hypertensio n, diabetes, hyperlipidemia, chronic kidney disease, status post clotted left upper extremity AV fist lonnie, who was admitted recently to the hospital for acute cerebrovascular accident and severe back darius n. 1. Acute renal failure on chronic kidney disease secondary to dehydration secondary to decreased p.o . intake. Renal function is improving gradually with gentle IV hydration. 2. Hyperkalemia, metabolic acidosis, most likely secondary to IV fluids and chronic kidney disease. We will change IV fluids to half normal saline at 80 mL per hour and also continue sodium bicarbonat e. 3. Severe back pain. Will give Percocet 1 tablet stat and 1 tablet 5/325 mg p.o. q. 8 hours p.r.n. for pain. 4. Cerebrovascular accident. Continue physical therapy as per the rehabilitation. 5. Hypertension. Blood pressure is stable. Continue with Lopressor 25 mg p.o. q. 12 hours. and 6. Type 2 diabetes. Sugars are under control. We will follow with you. Thank you for allowing me to participate in your patient's care. Mamta Neff MD cc: [id number] TT: 12/17/2016 22:18:42 Confirmation # [id number] Dictation # [id number]
[2016-12-18] MEDS: Insulin Lispro (humaLOG) 100 Units/ml Inj SC SCH (06:25)
[2016-12-18] MEDS: Lidocaine 5% Patch TD SCH (08:16)
[2016-12-18] MEDS: Pantoprazole 40 mg EC Tab PO SCH (08:20)
[2016-12-18 09:41] LABS: CALCIUM 9.4 mg/dL (8.4-10.2); POTASSIUM 4.6 MMOL/L (3.6-5.0)
[2016-12-18] MEDS: Sodium Chloride 0.45% 1,000 ML IV SCH ×2 (11:00→23:34)
--- NOTE | 2016-12-18 11:05 | CP.PCM.PN ---
Subjective - Date & Time of Evaluation Date of Evaluation: 12/18/16 Time of Evaluation: 10:55 - Subjective Subjective: Hospitalist Progress Note (Patient was seen and examined at 10:55 AM 12/18/16 625 -1) 61 y/o male (PMHx significant for HTN, HLD, CKD4 and DM2) who came to [facility] from [place] for rehab after he was admitted there for CVA as well as for a UTI. Briefly, patient was admitted to [facility] on 12/06/16 for slurred speech of sudden onset upon waking from sleep. He did not receive TPA. He had imaging consistent with CVA, and continued to have some slurred speech upon presentation to [facility] but denies any assymetric weakness or gait abnormality. Was noted to apparently have seizures and started on AEDs. CT head at [facility]: no acute findings MRI: L mid frontal lobe infarct Carotid dopplers: 20-39% proximal ICA stenoses EEG b/l diffuse cerebral dysfunction ROS Chronic LBP that is pinching in nature especially if sitting for prolonged time and then moving to try and get up (past 4 months) Chronic Left Knee Pain (worse after PT) NO other complaints upon FULL ROS Exam: General: AAOx3, NAD HEENT: NCA, EOMI, PERRLA, NO cervical lymphadenopathy, NO thyromegaly, NO pharyngeal erythema/exudate, Oral Mucosa and Nasal Turbinates are moist Cardiology: NS1 and NS2, NO M/R/G Respiratory: CTA B/L, NO R/R/W GI: BSx4, Soft, NT, Central Obesity (could not adequately palpate the liver and spleen), NO guarding/rebound tenderness Ext: Pulses are strong and equal, NO edema, Capillary Refill is 2 seconds Neurology: CN II through XII are grossly intact. I did not notice slurred speech. 5/5 strength with flexion and extension in B/L UE and LE (although hesitant on the left secondary to left knee pain) Assessment and Plan: 1). CVA ASA 81 mg PO 1x/day Lipitor 40 mg PO QHS Tricor 145 mg PO 1x/day 2). Hx HTN [place] 25 mg PO Q12H 3). Hx Seizure Keppra 500 mg PO 2x/day 4). Hx DM 2 Lispro ISS at 6:30 AM 5). Hx UTI Repeat Urine Culture 12/14/16 was negative and therefore antibiotic (Ampicillin was discontinued) 6). Hx Gout Colchicine 0.3 mg PO 1x/day 7). Hx Anemia Secondary to CKD Feosol 325 mg PO 2x/day HgB/Hct Stable BUN/Cr and eGFR are stable [place] [facility] Dr. Neff help is appreciated Continue NS at 80 mL per hour 8). Prophylactic Measures Tylenol 650 mg PO Q6H PRN Pain 4-10 Colace 100 mg PO 2x/day Hepparin 5,000 Units SQ Q8H Lidoderm 1 patch TD 1x/day to Left Knee Protonix 40 mg PO 1x/day Sodium Bicarbonate 650 mg PO 1x/day Marin Carrasquillo D.O. Objective - Vital Signs/Intake and Output Vital Signs (last 24 hours): Temp Pulse Resp BP Pulse Ox 98.6 F 94 H 20 121/53 L 98 12/17/16 20:08 12/18/16 08:18 12/17/16 20:08 12/18/16 08:18 12/17/16 20:08 - Medications Medications: Current Medications Acetaminophen (Tylenol 325mg Tab) 650 mg PO Q6H PRN PRN Reason: Pain, moderate (4-7) Stop: 12/23/16 23:59 Aspirin (Ecotrin) 81 mg PO DAILY [facility] Last Admin: 12/18/16 08:15 Dose: 81 mg Atorvastatin Calcium (Lipitor) 40 mg PO DIN [facility] Last Admin: 12/17/16 17:08 Dose: 40 mg Colchicine (Colocrys) 0.3 mg PO DAILY [facility] Last Admin: 12/18/16 08:29 Dose: 0.3 mg Cyclobenzaprine HCl (Flexeril) 10 mg PO Q6 [facility] Last Admin: 12/18/16 06:22 Dose: 10 mg Docusate Sodium (Colace) 100 mg PO BID [facility] Last Admin: 12/18/16 08:15 Dose: Not Given Fenofibrate (Tricor) 145 mg PO DAILY [facility] Last Admin: 12/18/16 08:20 Dose: 145 mg Ferrous Sulfate (Feosol) 325 mg PO BID [facility] Last Admin: 12/18/16 08:15 Dose: 325 mg Heparin Sodium (Porcine) (Heparin) 5,000 units SC Q8 [facility] PRN Reason: Protocol Last Admin: 12/18/16 06:22 Dose: 5,000 units Sodium Chloride (Sodium Chloride 0.45%) 1,000 mls @ 80 mls/hr IV .[id number] [facility] Stop: 12/19/16 10:08 Last Admin: 12/17/16 22:38 Dose: 80 mls/hr Insulin Human Lispro (Humalog) 0 units SC 0630 [facility] PRN Reason: Protocol Last Admin: 12/18/16 06:25 Dose: Not Given Levetiracetam (Keppra) 500 mg PO BID [facility] Last Admin: 12/18/16 08:16 Dose: 500 mg Lidocaine (Lidoderm) 1 ea TD DAILY [facility] Last Admin: 12/18/16 08:16 Dose: 1 ea Metoprolol Tartrate (Lopressor) 25 mg PO Q12 [facility] Last Admin: 12/18/16 08:18 Dose: 25 mg Pantoprazole Sodium (Protonix Ec Tab) 40 mg PO DAILY [facility] Last Admin: 12/18/16 08:20 Dose: 40 mg Sodium Bicarbonate (Sodium Bicarbonate Tab) 650 mg PO Q8 [facility] Last Admin: 12/18/16 06:22 Dose: 650 mg - Labs Labs: 12/15/16 05:00 12/18/16 09:20 PT 12.0 SECONDS (9.6-11.2) H 12/11/16 07:16 INR 1.15 (0.92-1.08) H 12/11/16 07:16 APTT 36.9 SECONDS (23.3-32.5) H 12/11/16 07:16
--- NOTE | 2016-12-18 18:26 | CP.PCM.PN ---
Subjective - Date & Time of Evaluation Date of Evaluation: 12/18/16 Time of Evaluation: 18:25 - Subjective Subjective: Patient is doing well ambulating 200' today pain is stable still with over a week to improve function continue current care Objective - Vital Signs/Intake and Output Vital Signs (last 24 hours): Temp Pulse Resp BP Pulse Ox 98.6 F 94 H 20 121/53 L 98 12/17/16 20:08 12/18/16 08:18 12/17/16 20:08 12/18/16 08:18 12/17/16 20:08 Intake and Output: 12/18/16 12/18/16 06:59 18:59 Intake Total 1520 Output Total 1000 Balance 520 - Medications Medications: Current Medications Acetaminophen (Tylenol 325mg Tab) 650 mg PO Q6H PRN PRN Reason: Pain, moderate (4-7) Stop: 12/23/16 23:59 Aspirin (Ecotrin) 81 mg PO DAILY [facility] Last Admin: 12/18/16 08:15 Dose: 81 mg Atorvastatin Calcium (Lipitor) 40 mg PO DIN [facility] Last Admin: 12/18/16 17:12 Dose: 40 mg Colchicine (Colocrys) 0.3 mg PO DAILY [facility] Last Admin: 12/18/16 08:29 Dose: 0.3 mg Cyclobenzaprine HCl (Flexeril) 10 mg PO Q6 [facility] Last Admin: 12/18/16 17:11 Dose: 10 mg Docusate Sodium (Colace) 100 mg PO BID [facility] Last Admin: 12/18/16 17:11 Dose: Not Given Fenofibrate (Tricor) 145 mg PO DAILY [facility] Last Admin: 12/18/16 08:20 Dose: 145 mg Ferrous Sulfate (Feosol) 325 mg PO BID [facility] Last Admin: 12/18/16 17:11 Dose: 325 mg Heparin Sodium (Porcine) (Heparin) 5,000 units SC Q8 [facility] PRN Reason: Protocol Last Admin: 12/18/16 13:10 Dose: 5,000 units Sodium Chloride (Sodium Chloride 0.45%) 1,000 mls @ 80 mls/hr IV .[id number] [facility] Stop: 12/19/16 10:08 Last Admin: 12/18/16 11:00 Dose: 80 mls/hr Insulin Human Lispro (Humalog) 0 units SC 0630 [facility] PRN Reason: Protocol Last Admin: 12/18/16 06:25 Dose: Not Given Levetiracetam (Keppra) 500 mg PO BID [facility] Last Admin: 12/18/16 17:12 Dose: 500 mg Lidocaine (Lidoderm) 1 ea TD DAILY [facility] Last Admin: 12/18/16 08:16 Dose: 1 ea Metoprolol Tartrate (Lopressor) 25 mg PO Q12 [facility] Last Admin: 12/18/16 08:18 Dose: 25 mg Oxycodone/Acetaminophen (Percocet 5/325 Mg Tab) 1 tab PO Q6 PRN PRN Reason: Pain, severe (8-10) Stop: 12/21/16 11:48 Pantoprazole Sodium (Protonix Ec Tab) 40 mg PO DAILY [facility] Last Admin: 12/18/16 08:20 Dose: 40 mg Sodium Bicarbonate (Sodium Bicarbonate Tab) 650 mg PO Q8 [facility] Last Admin: 12/18/16 13:10 Dose: 650 mg - Labs Labs: 12/15/16 05:00 12/18/16 09:20 PT 12.0 SECONDS (9.6-11.2) H 12/11/16 07:16 INR 1.15 (0.92-1.08) H 12/11/16 07:16 APTT 36.9 SECONDS (23.3-32.5) H 12/11/16 07:16
[2016-12-19] MEDS: Insulin Lispro (humaLOG) 100 Units/ml Inj SC SCH (06:47)
[2016-12-19 07:43] LABS: BLOOD UREA NITROGEN 42 mg/dl (9-20); CALCIUM 9.8 mg/dL (8.4-10.2); CARBON DIOXIDE 19 mmol/L (22-30); CHLORIDE 105 mmol/L (98-107); GFR AFRICAN-AMERICAN 35; GLUCOSE,RANDOM 124 mg/dL (75-110); POTASSIUM 4.6 MMOL/L (3.6-5.0); SODIUM 141 mmol/l (132-148)
[2016-12-19] MEDS: Oxycodone/Acetaminophen 5/325 mg Tab PO PRN (08:09)
[2016-12-19] MEDS: Lidocaine 5% Patch TD SCH (08:16)
[2016-12-19] MEDS: Pantoprazole 40 mg EC Tab PO SCH (09:00)
--- NOTE | 2016-12-19 20:39 | CP.PCM.PN ---
Subjective - Date & Time of Evaluation Date of Evaluation: 12/19/16 Time of Evaluation: 20:39 - Subjective Subjective: pt seen and examined, follow up consult is dictated #[id number] Objective - Vital Signs/Intake and Output Vital Signs (last 24 hours): Temp Pulse Resp BP Pulse Ox 98 F 82 20 120/70 98 12/19/16 18:31 12/19/16 18:31 12/19/16 18:31 12/19/16 18:31 12/19/16 16:04 - Medications Medications: Current Medications Acetaminophen (Tylenol 325mg Tab) 650 mg PO Q6H PRN PRN Reason: Pain, moderate (4-7) Stop: 12/23/16 23:59 Last Admin: 12/19/16 18:31 Dose: 650 mg Aspirin (Ecotrin) 81 mg PO DAILY [facility] Last Admin: 12/19/16 08:16 Dose: 81 mg Atorvastatin Calcium (Lipitor) 40 mg PO DIN [facility] Last Admin: 12/19/16 17:05 Dose: 40 mg Colchicine (Colocrys) 0.3 mg PO DAILY [facility] Last Admin: 12/19/16 08:16 Dose: 0.3 mg Cyclobenzaprine HCl (Flexeril) 10 mg PO Q6 [facility] Last Admin: 12/19/16 17:05 Dose: 10 mg Docusate Sodium (Colace) 100 mg PO BID [facility] Last Admin: 12/19/16 17:05 Dose: 100 mg Fenofibrate (Tricor) 145 mg PO DAILY [facility] Last Admin: 12/19/16 09:00 Dose: 145 mg Ferrous Sulfate (Feosol) 325 mg PO BID [facility] Last Admin: 12/19/16 17:05 Dose: 325 mg Heparin Sodium (Porcine) (Heparin) 5,000 units SC Q8 [facility] PRN Reason: Protocol Last Admin: 12/19/16 13:29 Dose: 5,000 units Insulin Human Lispro (Humalog) 0 units SC 0630 [facility] PRN Reason: Protocol Last Admin: 12/19/16 06:47 Dose: Not Given Levetiracetam (Keppra) 500 mg PO BID [facility] Last Admin: 12/19/16 17:05 Dose: 500 mg Lidocaine (Lidoderm) 1 ea TD DAILY [facility] Last Admin: 12/19/16 08:16 Dose: 1 ea Metoprolol Tartrate (Lopressor) 25 mg PO Q12 [facility] Last Admin: 12/19/16 09:00 Dose: 25 mg Oxycodone/Acetaminophen (Percocet 5/325 Mg Tab) 1 tab PO Q6 PRN PRN Reason: Pain, severe (8-10) Stop: 12/21/16 11:48 Last Admin: 12/19/16 08:09 Dose: 1 tab Pantoprazole Sodium (Protonix Ec Tab) 40 mg PO DAILY [facility] Last Admin: 12/19/16 09:00 Dose: 40 mg Sodium Bicarbonate (Sodium Bicarbonate Tab) 650 mg PO Q8 [facility] Last Admin: 12/19/16 14:00 Dose: 650 mg - Labs Labs: 12/15/16 05:00 12/19/16 05:30 PT 12.0 SECONDS (9.6-11.2) H 12/11/16 07:16 INR 1.15 (0.92-1.08) H 12/11/16 07:16 APTT 36.9 SECONDS (23.3-32.5) H 12/11/16 07:16
--- NOTE | 2016-12-20 00:15 | PN ---
DATE: 12/19/2016 The patient is located in acute rehab, room 625, bed 1. REQUESTED BY: Paul Montez REASON FOR FOLLOWUP: Acute renal failure, chronic kidney disease. HISTORY OF PRESENT ILLNESS: The patient is a 61-year-old elderly male with a history of hypertension, diabetes, hyperlipidemia, seizures and CVA and chronic kidney disease, was recently admitted to [facility] for acute CVA. From there, the patient was transferred to subacute rehab for physical therapy and also patient is complaining of back pain. Denies any chest pain or palpitations. No nausea, vomiting and no diarrhea. PHYSICAL EXAMINATION: VITAL SIGNS FOLLOWS: Blood pressure 130/76, pulse 78, respiration 20, temperature 98 and saturation 98%. Height 5 feet 3 inches and weight is 161 pounds. GENERAL: The patient is a 61-year-old elderly male, moderately built, moderately nourished and not in acute distress. HEENT: Pupils normal, reactive to light and accommodation. Conjunctivae pink. Sclerae anicteric. Tongue is moist. NECK: Trachea midline. LUNGS: Symmetric on both sides. Bilateral breath sounds present. Clear on auscultation. CARDIOVASCULAR: [place] in the fifth intercostal space midclavicular line. S1, S2 audible. Slightly tachycardic. ABDOMEN: Normal in appearance, soft and tympanic. No guarding. No rigidity. No hepatosplenomegaly. CENTRAL NERVOUS SYSTEM: The patient is alert, awake and oriented x 3. Sensory system is grossly within normal limits. Motor system: Power 4 x 5 on the left side. The right side is normal. EXTREMITIES: No cyanosis, no clubbing and no edema. CURRENT MEDICATIONS INCLUDE FOLLOWS Colace 100 mg p.o. b.i.d., colchicine 0.3 mg p.o. daily, aspirin 81 mg orally daily, ferrous sulfate 325 mg p.o. b.i.d., Flexeril 10 mg p.o. q. 6 hours, subcu heparin 5000 q.8 hours, Keppra 500 mg p.o. t.i.d., lidocaine ointment and lidocaine patch topical daily, Lipitor 40 mg daily, metoprolol 25 mg p.o. q. 12 hours, Percocet 1 tablet q. 6 hours p.r.n., Protonix 40 mg daily, sodium bicarbonate 650 p.o. q.8 hours, fenofibrate p.o. daily, Tylenol p.r.n. and insulin per protocol sliding. LABORATORY DATA INCLUDES FOLLOWS: As of 12/19/2016, sodium 141, potassium 4.6 , chloride 105, CO2 19, BUN 42, creatinine 2.2, glucose 124 and calcium 9.8. Hepatitis B surface antigen is pending. HENNY is negative. PTH intact is 30. SUMMARY: The patient is a 61-year-old elderly male, moderately built, moderately nourished, not in any distress with hypertension, diabetes, hyperlipidemia, chronic kidney disease, gout and cerebrovascular accident with left-sided weakness. 1. Acute renal failure on chronic kidney disease secondary to decreased oral intake. Renal function is improving with gentle hydration. 2. Hypertension. Blood pressure is stable. Continue his current medication of metoprolol 25 mg p.o. q. 12 hours and titrate as needed. 3. Cerebrovascular accident. Continue physical therapy. 4. Low back pain. Continue Percocet 1 tablet q. 6 hours p.r.n. for pain. Hold for sedation. We will follow with you. Thank you for allowing me to participate in your patient's care. Mamta Neff MD cc: [id number] TT: 12/20/2016 00:14:53 Confirmation # [id number] Dictation # [id number] sn MTDD
[2016-12-20] MEDS: Insulin Lispro (humaLOG) 100 Units/ml Inj SC SCH (06:30)
[2016-12-20] MEDS: Pantoprazole 40 mg EC Tab PO SCH (08:51)
[2016-12-20] MEDS: Lidocaine 5% Patch TD SCH (08:52)
[2016-12-21] MEDS: Insulin Lispro (humaLOG) 100 Units/ml Inj SC SCH (05:50)
[2016-12-21] MEDS: Oxycodone/Acetaminophen 5/325 mg Tab PO PRN (08:28)
[2016-12-21] MEDS: Lidocaine 5% Patch TD SCH (08:31)
[2016-12-21] MEDS: Pantoprazole 40 mg EC Tab PO SCH (08:33)
[2016-12-21] MEDS ORDERED: Oxycodone/Acetaminophen 5/325 mg Tab PO PRN ×3 (13:32→22:42)
--- NOTE | 2016-12-21 18:37 | CP.PCM.PN ---
Subjective - Date & Time of Evaluation Date of Evaluation: 12/21/16 Time of Evaluation: 15:20 - Subjective Subjective: Pt seen and examined. Denied any complaint Objective - Vital Signs/Intake and Output Vital Signs (last 24 hours): Temp Pulse Resp BP Pulse Ox 97.9 F 96 H 20 114/79 97 12/21/16 07:24 12/21/16 15:25 12/21/16 07:24 12/21/16 08:32 12/21/16 07:24 - Medications Medications: Current Medications Acetaminophen (Tylenol 325mg Tab) 650 mg PO Q6H PRN PRN Reason: Pain, moderate (4-7) Stop: 12/23/16 23:59 Last Admin: 12/20/16 17:33 Dose: 650 mg Aspirin (Ecotrin) 81 mg PO DAILY [facility] Last Admin: 12/21/16 08:30 Dose: 81 mg Atorvastatin Calcium (Lipitor) 40 mg PO HS [facility] Colchicine (Colocrys) 0.3 mg PO DAILY [facility] Last Admin: 12/21/16 08:30 Dose: 0.3 mg Cyclobenzaprine HCl (Flexeril) 10 mg PO Q6 [facility] Last Admin: 12/21/16 17:12 Dose: 10 mg Docusate Sodium (Colace) 100 mg PO BID [facility] Last Admin: 12/21/16 17:11 Dose: 100 mg Fenofibrate (Tricor) 145 mg PO DAILY [facility] Last Admin: 12/21/16 08:33 Dose: 145 mg Ferrous Sulfate (Feosol) 325 mg PO BID [facility] Last Admin: 12/21/16 17:12 Dose: 325 mg Heparin Sodium (Porcine) (Heparin) 5,000 units SC Q8 [facility] PRN Reason: Protocol Last Admin: 12/21/16 13:49 Dose: 5,000 units Insulin Human Lispro (Humalog) 0 units SC 0630 [facility] PRN Reason: Protocol Last Admin: 12/21/16 05:50 Dose: Not Given Levetiracetam (Keppra) 500 mg PO BID [facility] Last Admin: 12/21/16 17:12 Dose: 500 mg Lidocaine (Lidoderm) 1 ea TD DAILY [facility] Last Admin: 12/21/16 08:31 Dose: 1 ea Metoprolol Tartrate (Lopressor) 25 mg PO Q12 [facility] Last Admin: 12/21/16 08:32 Dose: 25 mg Oxycodone/Acetaminophen (Percocet 5/325 Mg Tab) 1 tab PO Q4 PRN PRN Reason: Pain, moderate (4-7) Stop: 12/24/16 13:33 Last Admin: 12/21/16 15:21 Dose: 1 tab Pantoprazole Sodium (Protonix Ec Tab) 40 mg PO DAILY [facility] Last Admin: 12/21/16 08:33 Dose: 40 mg Sodium Bicarbonate (Sodium Bicarbonate Tab) 650 mg PO Q8 [facility] Last Admin: 12/21/16 13:51 Dose: 650 mg - Labs Labs: 12/15/16 05:00 12/19/16 05:30 PT 12.0 SECONDS (9.6-11.2) H 12/11/16 07:16 INR 1.15 (0.92-1.08) H 12/11/16 07:16 APTT 36.9 SECONDS (23.3-32.5) H 12/11/16 07:16 - Constitutional Appears: No Acute Distress - Head Exam Head Exam: ATRAUMATIC - Eye Exam Eye Exam: absent: Scleral icterus - ENT Exam ENT Exam: Mucous Membranes Moist - Neck Exam Neck Exam: absent: Meningismus - Respiratory Exam Respiratory Exam: absent: Rhonchi, Wheezes, Respiratory Distress - Cardiovascular Exam Cardiovascular Exam: REGULAR RHYTHM, +S1, +S2 - GI/Abdominal Exam GI & Abdominal Exam: Soft. absent: Tenderness - Rectal Exam Rectal Exam: Deferred - Neurological Exam Neurological Exam: Alert, Oriented x3 - Psychiatric Exam Psychiatric exam: Normal Affect - Skin Skin Exam: Dry, Intact Assessment and Plan (1) CVA (cerebral vascular accident) Status: Acute (2) HTN (hypertension) Status: Chronic (3) HLD (hyperlipidemia) Status: Chronic (4) DM2 (diabetes mellitus, type 2) Status: Chronic (5) DVT prophylaxis Status: Acute - Assessment and Plan (Free Text) Assessment: 61 yo male with history of HTN, HLD and DM2 admitted to [facility] because of sudden onset of slurring of speech. Imaging was consistent with acute CVA. Patient was sent to Acute Rehab for continued management and therapy. (1) CVA (cerebral vascular accident) Cont ASA 81mg, Lipitor 40mg continue PT, OT and Speech therapy Modified dysphagia diet (2) Seizure Continue Keppra 500 PO BID (3) DM2 (diabetes mellitus, type 2) BS controlled without medication continue diabetic diet (4) UTI resolved (5) HTN (hypertension) BP stable continue Metoprolol 25mg PO q 12hrs (6) HLD (hyperlipidemia) on Lipitor, Tricor
--- NOTE | 2016-12-21 20:08 | CP.PCM.PN ---
Subjective - Date & Time of Evaluation Date of Evaluation: 12/21/16 Time of Evaluation: 20:08 - Subjective Subjective: pt seen and examined, follow up consult is dictated #[id number] check bmp in am Objective - Vital Signs/Intake and Output Vital Signs (last 24 hours): Temp Pulse Resp BP Pulse Ox 97.9 F 96 H 20 114/79 97 12/21/16 07:24 12/21/16 15:25 12/21/16 07:24 12/21/16 08:32 12/21/16 07:24 - Medications Medications: Current Medications Acetaminophen (Tylenol 325mg Tab) 650 mg PO Q6H PRN PRN Reason: Pain, moderate (4-7) Stop: 12/23/16 23:59 Last Admin: 12/20/16 17:33 Dose: 650 mg Aspirin (Ecotrin) 81 mg PO DAILY [facility] Last Admin: 12/21/16 08:30 Dose: 81 mg Atorvastatin Calcium (Lipitor) 40 mg PO HS [facility] Colchicine (Colocrys) 0.3 mg PO DAILY [facility] Last Admin: 12/21/16 08:30 Dose: 0.3 mg Cyclobenzaprine HCl (Flexeril) 10 mg PO Q6 [facility] Last Admin: 12/21/16 17:12 Dose: 10 mg Docusate Sodium (Colace) 100 mg PO BID [facility] Last Admin: 12/21/16 17:11 Dose: 100 mg Fenofibrate (Tricor) 145 mg PO DAILY [facility] Last Admin: 12/21/16 08:33 Dose: 145 mg Ferrous Sulfate (Feosol) 325 mg PO BID [facility] Last Admin: 12/21/16 17:12 Dose: 325 mg Heparin Sodium (Porcine) (Heparin) 5,000 units SC Q8 [facility] PRN Reason: Protocol Last Admin: 12/21/16 13:49 Dose: 5,000 units Insulin Human Lispro (Humalog) 0 units SC 0630 [facility] PRN Reason: Protocol Last Admin: 12/21/16 05:50 Dose: Not Given Levetiracetam (Keppra) 500 mg PO BID [facility] Last Admin: 12/21/16 17:12 Dose: 500 mg Lidocaine (Lidoderm) 1 ea TD DAILY [facility] Last Admin: 12/21/16 08:31 Dose: 1 ea Metoprolol Tartrate (Lopressor) 25 mg PO Q12 [facility] Last Admin: 12/21/16 08:32 Dose: 25 mg Oxycodone/Acetaminophen (Percocet 5/325 Mg Tab) 1 tab PO Q4 PRN PRN Reason: PAIN SCALE 4-10 Stop: 12/24/16 13:33 Pantoprazole Sodium (Protonix Ec Tab) 40 mg PO DAILY [facility] Last Admin: 12/21/16 08:33 Dose: 40 mg Sodium Bicarbonate (Sodium Bicarbonate Tab) 650 mg PO Q8 [facility] Last Admin: 12/21/16 13:51 Dose: 650 mg - Labs Labs: 12/15/16 05:00 12/19/16 05:30 PT 12.0 SECONDS (9.6-11.2) H 12/11/16 07:16 INR 1.15 (0.92-1.08) H 12/11/16 07:16 APTT 36.9 SECONDS (23.3-32.5) H 12/11/16 07:16
--- NOTE | 2016-12-22 00:11 | PN ---
DATE: 12/21/2016 The patient is located in rehab room 625, bed 1. HISTORY OF PRESENT ILLNESS: The patient is a 61-year-old elderly male with a history of edilberto gstanding hypertension, hyperlipidemia, diabetes, , status post cerebrovascular accident, chroni c kidney disease and low back pain was recently admitted to [facility] for acute CVA. Marie bsequently, transferred to acute rehab. The patient is not in acute distress. Denies any chest pain , palpitation. Denies any shortness of breath. Denies any nausea, vomiting, diarrhea. PHYSICAL EXAMINATION: VITAL SIGNS: As follows: Blood pressure 102/67, pulse 115, respiration 20, temperature 99.1, satura tion 94%. Height 5 feet 3 inches and weight is 161 pounds. GENERAL: The patient is a 61-year-old elderly male, moderately built, moderately nourished, not in a cute distress. HEENT: Pupils normal, reactive to light and accommodation. Conjunctivae pink. Sclerae anicteric. Tongue is moist. NECK: Trachea midline. LUNGS: Symmetric on both sides. Bilateral breath sounds present. Clear on auscultation. CARDIOVASCULAR: [place] in the fifth intercostal space midclavicular line. S1 and S2 audible. Slightl y tachycardic. ABDOMEN: Normal in appearance, soft, tympanic. No guarding, no rigidity. No hepatosplenomegaly. CENTRAL NERVOUS SYSTEM: The patient is alert, awake, oriented x 2-3. Sensory is grossly within norm al limits. Motor power on the left side 4-5/5. EXTREMITIES: No cyanosis, no clubbing, no edema. CURRENT MEDICATIONS: Include as follows: Colace 100 mg p.o. b.i.d., colchicine 0.3 mg p.o. daily, E cotrin 81 mg p.o. daily, Feosol 325 mg p.o. b.i.d., Flexeril 10 mg p.o. q. 6 hours, subQ heparin 5000 q. 8 hours, Keppra 500 mg p.o. b.i.d., Lidoderm patch daily, Lipitor 40 mg p.o. at bedtime, Lopresso r 25 mg p.o. q. 12 hours, Percocet 1 tablet q. 4 hours p.r.n. for pain, Protonix 40 mg p.o. daily, so dium bicarbonate 650 mg p.o. q. 8 hours, Tricor 145 mg p.o. daily, Tylenol 650 mg p.o. q. 6 hours. LABORATORY DATA: Include as follows: As of 12/19/2016, BUN and creatinine 42 and 2.3. Hepatitis B surface antigen is negative. Calcium is 9.8. Sodium 141, potassium 4.6, chloride 105, CO2 of 19, BU N 42, creatinine 2.3, glucose 124. HENNY screening is negative. C3 and C4 is normal. Hepatitis B and C serology normal in appearance. IN SUMMARY: The patient is a 61-year-old elderly male with history of longstanding hyperten christine, diabetes, chronic kidney disease, CVA, seizures, CKD, who was admitted with acute CVA to [facility], subsequently transferred to acute rehab with increased BUN and creatinine. 1. Status post acute renal failure on CKD. Renal function improved nicely back to his baseline to 2 .4. 2. Hypertension. Blood pressure is stable. Continue Lopressor 25 mg p.o. q. 12 hours and titrate a s needed. 3. Status post cerebrovascular accident. 4. Low back pain. Continue physical therapy. Continue Flexeril. Continue Percocet as needed, hold for sedation. Thank you for allowing me to participate in your patient's care. Mamta Neff MD cc: [id number] TT: 12/22/2016 00:10:45 Confirmation # [id number] Dictation # [id number] mn
[2016-12-22] MEDS: Insulin Lispro (humaLOG) 100 Units/ml Inj SC SCH (07:00)
[2016-12-22] MEDS: Pantoprazole 40 mg EC Tab PO SCH (08:49)
[2016-12-22] MEDS: Lidocaine 5% Patch TD SCH (08:50)
--- NOTE | 2016-12-22 13:27 | PSY.TMCNF ---
Nursing - Vital Signs Vital Signs (Last 8 hours): Vital Signs 12/22/16 12/22/16 08:30 08:56 Temperature 99.1 F 97.5 F L Pulse Rate 115 H 96 H Respiratory 20 20 Rate Blood Pressure 102/67 114/73 O2 Sat by Pulse 98 Oximetry Pain: 5 - Precautions: Precautions: Fall Prevention - Medications/Other Issues Comment: Still complaining of pain lolis during activities. Refuses to participate with therapy at times. - Consults Comment: Dr. Enamorado, Dr. Neff, Dr. House - Toileting Toileting: Dependent - Bladder Management Bladder Pattern: Normal Voiding Method: Toilet, Urinal - Bowel Management Bowel Pattern: Normal Bowel Management: Modified Independent Frequency of Accidents: 0 - Transfers Transfers: Dependent - ADL's ADL's: Maximal Assistance - Pain Management Comments: Tylenol PRN, Flexeril q6 - Patient/Family Teaching Comments: CARE POST CVA AND SAFETY PRECAUTIONS - Goals/Time Frame Comments: PER MULTIDISCIPLINARY CARE PLAN GOALS Physical Therapy - Bed Mobility Bed Mobility: Supervision, Verbal Cues, Contact Guard Comment: increased time with step by step cues and encouragement - Transfers Sit to Stand: Supervision, Verbal Cues - Ambulation Level of Assistance: Supervision, Verbal Cues Distance (ft.): 200 Assistive Devices: Rolling Walker - Stair Negotiation Stairs: Level of Assistance: Verbal Cues, Contact Guard Number of Stairs: 6 Stairs: Assistive Devices: Right Handrail - Standing Balance Static Stand: Supervision Dynamic Stand: Supervision, Contact Guard Assist - Pain Management Techniques: Medication, Position Change, Distraction, Inactivity - Insight/Carryover Insight/Carryover: Fair - Patient/Family Education Comment: -safety, therapy schedule, therapy goals, pain management, use of call vázquez, postural re-education, recommended DME, discharge plan, CVA recovery, importance of wearing diabetic shoes - Assessment/Plan Assessment: Pt is agreeable to participate in 1:1 and group recreation therapy sessions. Pt presents with decrease initation and requires verbal cues to initiate task. Pt requires mod verbal cues during word finding leisure tasks such as name 5 or tapple. Pt is independent with coloring tasks and completes task during his free time. Pt's main barriers to participation is decrease arousal, pain, and fatigue. - Goals Timeframe: 7 days Goals: 1 flight of steps with BUE on rail with CS. 500 feet on all surfaces with RW with mod I. mod I with RW for all transfers. Mod I with bed/mat mobility - Provider Therapist: Melodie Alvarenga PT, DPT License Number: [id number] Occupational Therapy - Arousal/Attention/Orientation Patient Orientation: Person, Place, Appropriate to Situation - ADL/IADL Self Feeding: Supervision, Set-up Help Grooming: Supervision, Set-up Help Dressing-Upper Extremity: Set-up Help Dressing-Lower Extremity: Maximum Assistance (pain is limiting factor) - Sitting Balance Static Sitting: Independent without upper extremity support Dynamic Sitting: Reaches across midline, Reaches within base of support, Requires supervision - Transfers Wheelchair to Bed Transfers: Contact Guard, Minimal Assistance, Moderate Assistance, Maximum Assistance Toilet Transfers: Contact Guard - Wheelchair Management Level of Assistance: Supervision, Contact Guard - Upper Extremity Status Right Upper Extremity Comment: ROM = WFL Left Upper Extremity Comment: ROM = WFL - Pain Alleviating Techniques: Medication, Position Change, Distraction, Inactivity - Insight/Carryover Insight/Carryover: Fair - Patient/Family Education Comment: -safety, therapy schedule, therapy goals, pain management, use of call vázquez, postural re-education, recommended DME, discharge plan, CVA recovery, importance of wearing diabetic shoes - Assessment/Plan Assessment: Pt is agreeable to participate in 1:1 and group recreation therapy sessions. Pt presents with decrease initation and requires verbal cues to initiate task. Pt requires mod verbal cues during word finding leisure tasks such as name 5 or tapple. Pt is independent with coloring tasks and completes task during his free time. Pt's main barriers to participation is decrease arousal, pain, and fatigue. - Goals Timeframe: 7 days Goals: 1 flight of steps with BUE on rail with CS. 500 feet on all surfaces with RW with mod I. mod I with RW for all transfers. Mod I with bed/mat mobility - Provider Therapist: emy chavez Speech Therapy - Consult Information Patient on Program: Yes Medical Diagnosis: CVA Treatment Diagnosis: 1.) moderate cognitive linguistic deficits. 2.) mild dysarthria. 3.) mild oral dysphagia - Assessment Expressive Language Impairment: Moderate Problem Solving Impairment: Moderate Speech/Articulation Impairment: Mild Dysphagia/Swallowing Impairment: Mild - Plan Assessment: Pt is agreeable to participate in 1:1 and group recreation therapy sessions. Pt presents with decrease initation and requires verbal cues to initiate task. Pt requires mod verbal cues during word finding leisure tasks such as name 5 or tapple. Pt is independent with coloring tasks and completes task during his free time. Pt's main barriers to participation is decrease arousal, pain, and fatigue. - Provider Therapist: Shabnam Sneed License Number: [id number] Recreational Therapy - Participation Participation: Participates in Individual and/or Group Sessions - Attendance Attendance: 3-5 times per week - Activities Leisure Activities: Coloring - Socialization Level of Socialization: Initiates/interacts freely with care givers and peer - Diversional Time Diversional Time: coloring, watching television - Assessment Assessment/Plan: Pt is agreeable to participate in 1:1 and group recreation therapy sessions. Pt presents with decrease initation and requires verbal cues to initiate task. Pt requires mod verbal cues during word finding leisure tasks such as name 5 or tapple. Pt is independent with coloring tasks and completes task during his free time. Pt's main barriers to participation is decrease arousal, pain, and fatigue. Problems Currently Limiting Participation: L side weakness, decrease leisure awareness level, decrease problem solving Goals and Time Frame: Pt will be encouraged to participate in 1:1 and group recreation therapy sessions 3-5x to improve leisure awareness level, problem solving, recalling facts on demand, and attention to task. - Provider Therapist: Rita Daniel, FLOORING MACHINE OPERATOR #[id number] Nutrition - Current Diet Current Diet/ Supplement/ Feedings: Moderate consistent CHO renal non-dialysis advanced bite size thin liquids - Appetite Percent Meal Consumed: 50-74% - Comments Comments: CARE POST CVA AND SAFETY PRECAUTIONS - Assessment/Goals/Time Frame Assessment/Goals/Time Frame: Still complaining of pain lolis during activities. Refuses to participate with therapy at times. - Provider Provider: Gabriela Trinh RD Case Management - Psychosocial Assessment Support Systems: Patient's spouse Lo Dux- [phone] Psychological Interventions/Needs: Patient is alert and oriented x3, patient requiring continued encouragement to participate in therapy Discharge Concerns: Patient continues to require CGA for transfers and max A for LB ADLs Patient/Family Meeting: CM met with patient and rehab team. Intervention/Goal/Outcome:: 1. Goal: Supervision overall. 2. Plan: Home with skilled services and family support. 3. DME needs. 4. continued emotional support and encouraged to participate in therapy. 5. f/u appts. 6. Tentative discharge needs: 12/26/2016 - Discharge Plan Discharge Plan: Home with significant other/family - Provider Provider: SRAVANI Rehman, MACHINE STEMMER License Number: [id number] Rehabilitation Plan - Treatment Plan Treatment Plan: Physical Therapy, Occupational Therapy, Speech, Dietary, Patient /Family Education - Discharge Plan Estimated Date of Discharge: 12/26/16 Discharge to: Home
--- NOTE | 2016-12-22 13:54 | CP.PCM.PN ---
Subjective - Date & Time of Evaluation Date of Evaluation: 12/22/16 Time of Evaluation: 13:51 - Subjective Subjective: Patient seen in room and has some right hip pain now, but other pains are getting better. He is on SQ heparin and this will be stopped so we will then be able to give IM Toradol x1 dose He is doing ok and he was not much more active at home is very helpful and will be coming back for family training Objective - Vital Signs/Intake and Output Vital Signs (last 24 hours): Temp Pulse Resp BP Pulse Ox 97.5 F L 96 H 20 114/73 98 12/22/16 08:56 12/22/16 08:56 12/22/16 08:56 12/22/16 08:56 12/22/16 08:56 - Medications Medications: Current Medications Acetaminophen (Tylenol 325mg Tab) 650 mg PO Q6H PRN PRN Reason: Pain, moderate (4-7) Stop: 12/23/16 23:59 Last Admin: 12/20/16 17:33 Dose: 650 mg Aspirin (Ecotrin) 81 mg PO DAILY [facility] Last Admin: 12/22/16 08:49 Dose: 81 mg Atorvastatin Calcium (Lipitor) 40 mg PO HS [facility] Last Admin: 12/21/16 21:17 Dose: 40 mg Colchicine (Colocrys) 0.3 mg PO DAILY [facility] Last Admin: 12/22/16 08:50 Dose: 0.3 mg Cyclobenzaprine HCl (Flexeril) 10 mg PO Q6 [facility] Last Admin: 12/22/16 13:00 Dose: 10 mg Docusate Sodium (Colace) 100 mg PO BID [facility] Last Admin: 12/22/16 08:52 Dose: Not Given Fenofibrate (Tricor) 145 mg PO DAILY [facility] Last Admin: 12/22/16 08:49 Dose: 145 mg Ferrous Sulfate (Feosol) 325 mg PO BID [facility] Last Admin: 12/22/16 08:49 Dose: 325 mg Heparin Sodium (Porcine) (Heparin) 5,000 units SC Q8 [facility] PRN Reason: Protocol Last Admin: 12/22/16 13:14 Dose: 5,000 units Insulin Human Lispro (Humalog) 0 units SC 0630 [facility] PRN Reason: Protocol Last Admin: 12/22/16 07:00 Dose: Not Given Levetiracetam (Keppra) 500 mg PO BID [facility] Last Admin: 12/22/16 08:49 Dose: 500 mg Lidocaine (Lidoderm) 1 ea TD DAILY [facility] Last Admin: 12/22/16 08:50 Dose: 1 ea Metoprolol Tartrate (Lopressor) 25 mg PO Q12 [facility] Last Admin: 12/22/16 08:55 Dose: 25 mg Oxycodone/Acetaminophen (Percocet 5/325 Mg Tab) 1 tab PO Q4 PRN PRN Reason: Pain, severe (8-10) Stop: 12/24/16 13:33 Pantoprazole Sodium (Protonix Ec Tab) 40 mg PO DAILY [facility] Last Admin: 12/22/16 08:49 Dose: 40 mg Sodium Bicarbonate (Sodium Bicarbonate Tab) 650 mg PO Q8 [facility] Last Admin: 12/22/16 13:15 Dose: 650 mg - Labs Labs: 12/15/16 05:00 12/19/16 05:30 PT 12.0 SECONDS (9.6-11.2) H 12/11/16 07:16 INR 1.15 (0.92-1.08) H 12/11/16 07:16 APTT 36.9 SECONDS (23.3-32.5) H 12/11/16 07:16
[2016-12-23] MEDS: Insulin Lispro (humaLOG) 100 Units/ml Inj SC SCH (06:04)
[2016-12-23] MEDS: Pantoprazole 40 mg EC Tab PO SCH (09:07)
[2016-12-23] MEDS: Lidocaine 5% Patch TD SCH (09:08)
--- NOTE | 2016-12-23 13:54 | CP.PCM.PN ---
Subjective - Date & Time of Evaluation Date of Evaluation: 12/23/16 Time of Evaluation: 11:40 - Subjective Subjective: Pt seen and examined. Denied any complaint Objective - Vital Signs/Intake and Output Vital Signs (last 24 hours): Temp Pulse Resp BP Pulse Ox 98.1 F 102 H 20 121/75 96 12/23/16 08:30 12/23/16 09:07 12/23/16 08:30 12/23/16 09:07 12/23/16 08:30 - Medications Medications: Current Medications Acetaminophen (Tylenol 325mg Tab) 650 mg PO Q6H PRN PRN Reason: Pain, moderate (4-7) Stop: 12/23/16 23:59 Last Admin: 12/20/16 17:33 Dose: 650 mg Aspirin (Ecotrin) 81 mg PO DAILY [facility] Last Admin: 12/23/16 09:06 Dose: 81 mg Atorvastatin Calcium (Lipitor) 40 mg PO HS [facility] Last Admin: 12/22/16 21:25 Dose: 40 mg Colchicine (Colocrys) 0.3 mg PO DAILY [facility] Last Admin: 12/23/16 09:04 Dose: 0.3 mg Cyclobenzaprine HCl (Flexeril) 10 mg PO Q6 [facility] Last Admin: 12/23/16 11:42 Dose: 10 mg Docusate Sodium (Colace) 100 mg PO BID [facility] Last Admin: 12/23/16 09:05 Dose: 100 mg Fenofibrate (Tricor) 145 mg PO DAILY [facility] Last Admin: 12/23/16 09:00 Dose: 145 mg Ferrous Sulfate (Feosol) 325 mg PO BID [facility] Last Admin: 12/23/16 09:06 Dose: 325 mg Insulin Human Lispro (Humalog) 0 units SC 0630 [facility] PRN Reason: Protocol Last Admin: 12/23/16 06:04 Dose: Not Given Levetiracetam (Keppra) 500 mg PO BID [facility] Last Admin: 12/23/16 09:06 Dose: 500 mg Lidocaine (Lidoderm) 1 ea TD DAILY [facility] Last Admin: 12/23/16 09:08 Dose: 1 ea Metoprolol Tartrate (Lopressor) 25 mg PO Q12 [facility] Last Admin: 12/23/16 09:07 Dose: 25 mg Oxycodone/Acetaminophen (Percocet 5/325 Mg Tab) 1 tab PO Q4 PRN PRN Reason: Pain, severe (8-10) Stop: 12/24/16 13:33 Pantoprazole Sodium (Protonix Ec Tab) 40 mg PO DAILY [facility] Last Admin: 12/23/16 09:07 Dose: 40 mg Sodium Bicarbonate (Sodium Bicarbonate Tab) 650 mg PO Q8 [facility] Last Admin: 12/23/16 06:04 Dose: 650 mg - Labs Labs: 12/15/16 05:00 12/19/16 05:30 PT 12.0 SECONDS (9.6-11.2) H 12/11/16 07:16 INR 1.15 (0.92-1.08) H 12/11/16 07:16 APTT 36.9 SECONDS (23.3-32.5) H 12/11/16 07:16 - Constitutional Appears: No Acute Distress - Head Exam Head Exam: ATRAUMATIC - Eye Exam Eye Exam: absent: Scleral icterus - ENT Exam ENT Exam: Mucous Membranes Moist - Neck Exam Neck Exam: absent: Meningismus - Respiratory Exam Respiratory Exam: absent: Rhonchi, Wheezes, Respiratory Distress - Cardiovascular Exam Cardiovascular Exam: REGULAR RHYTHM, +S1, +S2 - GI/Abdominal Exam GI & Abdominal Exam: Soft. absent: Tenderness - Rectal Exam Rectal Exam: Deferred - Neurological Exam Neurological Exam: Alert, Oriented x3 - Psychiatric Exam Psychiatric exam: Normal Affect - Skin Skin Exam: Dry, Intact Assessment and Plan (1) DM2 (diabetes mellitus, type 2) Status: Chronic (2) HLD (hyperlipidemia) Status: Chronic (3) DVT prophylaxis Status: Acute (4) HTN (hypertension) Status: Chronic (5) CVA (cerebral vascular accident) Status: Acute - Assessment and Plan (Free Text) Assessment: 61 yo male with history of HTN, HLD and DM2 admitted to [facility] because of sudden onset of slurring of speech. Imaging was consistent with acute CVA. Patient was sent to Acute Rehab for continued management and therapy. (1) CVA (cerebral vascular accident) Cont ASA 81mg, Lipitor 40mg continue PT, OT and Speech therapy Modified dysphagia diet (2) Seizure Continue Keppra 500 PO BID (3) DM2 (diabetes mellitus, type 2) BS controlled without medication continue diabetic diet (4) UTI resolved (5) HTN (hypertension) BP stable continue Metoprolol 25mg PO q 12hrs (6) HLD (hyperlipidemia) on Lipitor, Tricor (7) LORRIE on CKD Dr Neff on renal consult repeat BMP
[2016-12-23 15:54] LABS: CALCIUM 10.2 mg/dL (8.4-10.2)
--- NOTE | 2016-12-23 17:30 | CP.PCM.PN ---
Subjective - Date & Time of Evaluation Date of Evaluation: 12/23/16 Time of Evaluation: 17:28 - Subjective Subjective: patient seen in room it is now 24 hours since the heparin has been stopped so he can have the Toradol injection now he is otherwise stable no fever or CP continue with PT/OT Objective - Vital Signs/Intake and Output Vital Signs (last 24 hours): Temp Pulse Resp BP Pulse Ox 98.1 F 102 H 20 121/75 96 12/23/16 08:30 12/23/16 09:07 12/23/16 08:30 12/23/16 09:07 12/23/16 08:30 - Medications Medications: Current Medications Acetaminophen (Tylenol 325mg Tab) 650 mg PO Q6H PRN PRN Reason: Pain, moderate (4-7) Stop: 12/23/16 23:59 Last Admin: 12/20/16 17:33 Dose: 650 mg Aspirin (Ecotrin) 81 mg PO DAILY [facility] Last Admin: 12/23/16 09:06 Dose: 81 mg Atorvastatin Calcium (Lipitor) 40 mg PO HS [facility] Last Admin: 12/22/16 21:25 Dose: 40 mg Colchicine (Colocrys) 0.3 mg PO DAILY [facility] Last Admin: 12/23/16 09:04 Dose: 0.3 mg Cyclobenzaprine HCl (Flexeril) 10 mg PO Q6 [facility] Last Admin: 12/23/16 11:42 Dose: 10 mg Docusate Sodium (Colace) 100 mg PO BID [facility] Last Admin: 12/23/16 09:05 Dose: 100 mg Fenofibrate (Tricor) 145 mg PO DAILY [facility] Last Admin: 12/23/16 09:00 Dose: 145 mg Ferrous Sulfate (Feosol) 325 mg PO BID [facility] Last Admin: 12/23/16 09:06 Dose: 325 mg Sodium Chloride (Sodium Chloride 0.45%) 1,000 mls @ 70 mls/hr IV .[id number] [facility] Stop: 12/25/16 17:22 Insulin Human Lispro (Humalog) 0 units SC 0630 [facility] PRN Reason: Protocol Last Admin: 12/23/16 06:04 Dose: Not Given Levetiracetam (Keppra) 500 mg PO BID [facility] Last Admin: 12/23/16 09:06 Dose: 500 mg Lidocaine (Lidoderm) 1 ea TD DAILY [facility] Last Admin: 12/23/16 09:08 Dose: 1 ea Metoprolol Tartrate (Lopressor) 25 mg PO Q12 [facility] Last Admin: 12/23/16 09:07 Dose: 25 mg Pantoprazole Sodium (Protonix Ec Tab) 40 mg PO DAILY [facility] Last Admin: 12/23/16 09:07 Dose: 40 mg Sodium Bicarbonate (Sodium Bicarbonate Tab) 650 mg PO Q8 [facility] Last Admin: 12/23/16 14:16 Dose: 650 mg - Labs Labs: 12/15/16 05:00 12/23/16 03:05 PT 12.0 SECONDS (9.6-11.2) H 12/11/16 07:16 INR 1.15 (0.92-1.08) H 12/11/16 07:16 APTT 36.9 SECONDS (23.3-32.5) H 12/11/16 07:16
[2016-12-23] MEDS: Sodium Chloride 0.45% 1,000 ML IV SCH (17:53)
--- NOTE | 2016-12-23 19:36 | CP.PCM.PN ---
Subjective - Date & Time of Evaluation Date of Evaluation: 12/23/16 Time of Evaluation: 19:36 - Subjective Subjective: pt seen and examined, follow up consult is dictated #[id number] 1. lyudmila on ckd-4 2. htn 3. cva with left hemiparesis 4. r/o acute gouty arthritis ivf 1/2 ns at 70 ml/hr check uric acid solumedrol 40 mg iv pb x1, consider to start tapering dose of prednisone in am for acute goutyarthritis Objective - Vital Signs/Intake and Output Vital Signs (last 24 hours): Temp Pulse Resp BP Pulse Ox 98.1 F 102 H 20 121/75 96 12/23/16 08:30 12/23/16 09:07 12/23/16 08:30 12/23/16 09:07 12/23/16 08:30 - Medications Medications: Current Medications Acetaminophen (Tylenol 325mg Tab) 650 mg PO Q6H PRN PRN Reason: Pain, moderate (4-7) Stop: 12/23/16 23:59 Last Admin: 12/20/16 17:33 Dose: 650 mg Aspirin (Ecotrin) 81 mg PO DAILY [facility] Last Admin: 12/23/16 09:06 Dose: 81 mg Atorvastatin Calcium (Lipitor) 40 mg PO HS [facility] Last Admin: 12/22/16 21:25 Dose: 40 mg Colchicine (Colocrys) 0.3 mg PO DAILY [facility] Last Admin: 12/23/16 09:04 Dose: 0.3 mg Cyclobenzaprine HCl (Flexeril) 10 mg PO Q6 [facility] Last Admin: 12/23/16 17:51 Dose: 10 mg Docusate Sodium (Colace) 100 mg PO BID [facility] Last Admin: 12/23/16 17:50 Dose: 100 mg Fenofibrate (Tricor) 145 mg PO DAILY [facility] Last Admin: 12/23/16 09:00 Dose: 145 mg Ferrous Sulfate (Feosol) 325 mg PO BID [facility] Last Admin: 12/23/16 17:51 Dose: 325 mg Sodium Chloride (Sodium Chloride 0.45%) 1,000 mls @ 70 mls/hr IV .[id number] [facility] Stop: 12/25/16 17:22 Last Admin: 12/23/16 17:53 Dose: 70 mls/hr Insulin Human Lispro (Humalog) 0 units SC 0630 [facility] PRN Reason: Protocol Last Admin: 12/23/16 06:04 Dose: Not Given Levetiracetam (Keppra) 500 mg PO BID [facility] Last Admin: 12/23/16 17:51 Dose: 500 mg Lidocaine (Lidoderm) 1 ea TD DAILY [facility] Last Admin: 12/23/16 09:08 Dose: 1 ea Metoprolol Tartrate (Lopressor) 25 mg PO Q12 [facility] Last Admin: 12/23/16 09:07 Dose: 25 mg Pantoprazole Sodium (Protonix Ec Tab) 40 mg PO DAILY [facility] Last Admin: 12/23/16 09:07 Dose: 40 mg Sodium Bicarbonate (Sodium Bicarbonate Tab) 650 mg PO Q8 [facility] Last Admin: 12/23/16 14:16 Dose: 650 mg - Labs Labs: 12/15/16 05:00 12/23/16 03:05 PT 12.0 SECONDS (9.6-11.2) H 12/11/16 07:16 INR 1.15 (0.92-1.08) H 12/11/16 07:16 APTT 36.9 SECONDS (23.3-32.5) H 12/11/16 07:16
[2016-12-23] MEDS ORDERED: methylPREDNISolone 40 MG in Sodium Chloride 0.9% 50 ML IVPB ONE (20:00)
--- NOTE | 2016-12-23 23:00 | PN ---
DATE: 12/23/2016 REQUESTED BY: Rick Arambula MD HISTORY OF PRESENT ILLNESS: The patient is a 61-year-old elderly male with a past medical h istory significant for long-standing hypertension, diabetes, hyperlipidemia, gout, chronic kidney dis ease, status post failed left upper extremity AV fistula, who was recently admitted to [facility] (formerly [facility]) for left-sided weakness and found to have CVA. Subsequently, the patient was transferred to acute rehab. The patient is also complaining of severe low back pain and today the patient is compla ining of difficulty to ambulate, move the left leg and also complains of left knee pain and swelling. Denies any fever, cough. Denies any chest pain, palpitation. No nausea, vomiting, diarrhea. No e vickey of the legs. PHYSICAL EXAMINATION: VITAL SIGNS: Blood pressure 101/70, pulse 92, respirations 20, temperature 98.1, saturation 96%. He ight 5 feet 3 inches and weight is 161 pounds. GENERAL: The patient is a 61-year-old elderly male, moderately built, moderately nourished, not in a cute distress. HEENT: Pupils normal, reactive to light and accommodation. Conjunctivae pink. Sclerae anicteric. Tongue is moist. NECK: Trachea midline. LUNGS: Symmetric on both sides. Bilateral breath sounds present. No crackles. CARDIOVASCULAR: Fleming in the fifth intercostal space midclavicular line. S1 and S2 audible. No murm ur or gallop. ABDOMEN: Normal in appearance, soft, tympanic. No guarding, no rigidity. No hepatosplenomegaly. CENTRAL NERVOUS SYSTEM: The patient is alert, awake, oriented x 3. Sensory system is grossly within normal limits. Motor system with power 4/5 on the left side, the right side of 5/5. EXTREMITIES: No cyanosis, no clubbing, no edema. The patient has tenderness of the left knee joint a nd warm to touch, slightly and slightly swollen. CURRENT MEDICATIONS: Colace 100 mg p.o. b.i.d., colchicine 0.3 mg p.o. daily, aspirin 81 mg p.o. da darryl, ferrous sulfate 325 mg p.o. b.i.d., Feosol 325 mg p.o. b.i.d., Flexeril 10 mg p.o. q. 6 hours, H umalog for sliding scale, Keppra 500 mg p.o. b.i.d., lidocaine patch, Lipitor 40 mg p.o. at bedtime, metoprolol 25 mg p.o. q. 12 hours, Protonix 40 mg daily, metoprolol 25 q. 12 hours, sodium bicarbonat e 650 p.o. q. 8 hours, Toradol 30 mg IM x 1 dose, Tricor 145 mg p.o. daily, Tylenol 650 mg p.o. q. 6 hours p.r.n. LABORATORY DATA: As of 12/23/2016, sodium 132, potassium is 5, chloride 95, CO2 22, BUN 71, creatini ne 2.9, glucose 138, calcium is 10.2 and phosphorus 4.4 as of 12/21/2016. SUMMARY: The patient is a 61-year-old elderly male with a history of hypertension, diabetes , hyperlipidemia, chronic kidney disease, gout, acute cerebrovascular accident with left-sided weakne ss, with pain in the left knee joint and swelling and tenderness. 1. Acute renal failure on chronic kidney disease. Renal function is deteriorating again most likely secondary to decreased p.o. intake. 2. Hypertension. Blood pressure is on the low side. 3. Left knee pain, rule out acute gouty arthritis. 4. Cerebrovascular accident with left-sided weakness. Continue physical therapy as per the rehab re commendations and we will check serum uric acid level stat and also we will give Solu-Medrol 40 mg IV piggyback x 1 dose and also we will start IV fluids half normal saline at 70 mL per hour and repeat BMP and uric acid level again in a.m. We will follow with you. Thank you for allowing me to participate in your patient's care. Mamta Neff MD cc: [id number] TT: 12/23/2016 22:59:43 Confirmation # [id number] Dictation # [id number] ln
[2016-12-24 05:55] LABS: POTASSIUM 4.9 MMOL/L (3.6-5.0)
[2016-12-24 05:58] LABS: URIC ACID 13.4 mg/Dl (3.5-8.5)
[2016-12-24 05:59] LABS: CALCIUM 9.6 mg/dL (8.4-10.2)
[2016-12-24] MEDS: Insulin Lispro (humaLOG) 100 Units/ml Inj SC SCH (07:01)
[2016-12-24] MEDS: Sodium Chloride 0.45% 1,000 ML IV SCH ×2 (08:35→21:49)
[2016-12-24] MEDS: Lidocaine 5% Patch TD SCH (08:38)
[2016-12-24] MEDS: Pantoprazole 40 mg EC Tab PO SCH (08:38)
--- NOTE | 2016-12-24 19:02 | CP.PCM.PN ---
Subjective - Date & Time of Evaluation Date of Evaluation: 12/24/16 Time of Evaluation: 19:01 - Subjective Subjective: Patient seen and noted a nice improvement in pain after the toradol injection and he felt he was able to do much more in therapy today Staff noted that he was like a new man ambulated over 300' today! Objective - Vital Signs/Intake and Output Vital Signs (last 24 hours): Temp Pulse Resp BP Pulse Ox 97.6 F 98 H 20 126/79 97 12/24/16 08:20 12/24/16 08:38 12/24/16 08:20 12/24/16 08:38 12/24/16 08:20 Intake and Output: 12/24/16 12/25/16 18:59 06:59 Intake Total 1840 Balance 1840 - Medications Medications: Current Medications Aspirin (Ecotrin) 81 mg PO DAILY [facility] Last Admin: 12/24/16 08:38 Dose: 81 mg Atorvastatin Calcium (Lipitor) 40 mg PO HS [facility] Last Admin: 12/23/16 21:51 Dose: 40 mg Colchicine (Colocrys) 0.3 mg PO DAILY [facility] Last Admin: 12/24/16 08:37 Dose: 0.3 mg Cyclobenzaprine HCl (Flexeril) 10 mg PO Q6 [facility] Last Admin: 12/24/16 17:30 Dose: 10 mg Docusate Sodium (Colace) 100 mg PO BID [facility] Last Admin: 12/24/16 17:30 Dose: 100 mg Fenofibrate (Tricor) 145 mg PO DAILY [facility] Last Admin: 12/24/16 08:38 Dose: 145 mg Ferrous Sulfate (Feosol) 325 mg PO BID [facility] Last Admin: 12/24/16 17:30 Dose: 325 mg Sodium Chloride (Sodium Chloride 0.45%) 1,000 mls @ 70 mls/hr IV .[id number] [facility] Stop: 12/25/16 17:22 Last Admin: 12/24/16 08:35 Dose: 70 mls/hr Insulin Human Lispro (Humalog) 0 units SC 0630 [facility] PRN Reason: Protocol Last Admin: 12/24/16 07:01 Dose: 1 units Levetiracetam (Keppra) 500 mg PO BID [facility] Last Admin: 12/24/16 17:30 Dose: 500 mg Lidocaine (Lidoderm) 1 ea TD DAILY [facility] Last Admin: 12/24/16 08:38 Dose: 1 ea Metoprolol Tartrate (Lopressor) 25 mg PO Q12 [facility] Last Admin: 12/24/16 08:38 Dose: 25 mg Pantoprazole Sodium (Protonix Ec Tab) 40 mg PO DAILY [facility] Last Admin: 12/24/16 08:38 Dose: 40 mg Prednisone (Prednisone Tab) 20 mg PO DAILY [facility] Stop: 12/26/16 09:46 Last Admin: 12/24/16 11:42 Dose: 20 mg Prednisone (Prednisone Tab) 15 mg PO DAILY [facility] Stop: 12/28/16 09:01 Prednisone (Prednisone Tab) 10 mg PO DAILY [facility] Stop: 12/30/16 09:01 Prednisone (Prednisone Tab) 5 mg PO DAILY [facility] Stop: 01/01/17 09:01 Sodium Bicarbonate (Sodium Bicarbonate Tab) 650 mg PO Q8 [facility] Last Admin: 12/24/16 14:30 Dose: 650 mg - Labs Labs: 12/15/16 05:00 12/24/16 05:25 PT 12.0 SECONDS (9.6-11.2) H 12/11/16 07:16 INR 1.15 (0.92-1.08) H 12/11/16 07:16 APTT 36.9 SECONDS (23.3-32.5) H 12/11/16 07:16
--- NOTE | 2016-12-24 19:25 | CP.PCM.PN ---
Subjective - Date & Time of Evaluation Date of Evaluation: 12/24/16 Time of Evaluation: 19:25 - Subjective Subjective: pt seen and examined, follow up consult is dictated # [id number] Objective - Vital Signs/Intake and Output Vital Signs (last 24 hours): Temp Pulse Resp BP Pulse Ox 97.6 F 98 H 20 126/79 97 12/24/16 08:20 12/24/16 08:38 12/24/16 08:20 12/24/16 08:38 12/24/16 08:20 Intake and Output: 12/24/16 12/25/16 18:59 06:59 Intake Total 1840 Balance 1840 - Medications Medications: Current Medications Aspirin (Ecotrin) 81 mg PO DAILY [facility] Last Admin: 12/24/16 08:38 Dose: 81 mg Atorvastatin Calcium (Lipitor) 40 mg PO HS [facility] Last Admin: 12/23/16 21:51 Dose: 40 mg Colchicine (Colocrys) 0.3 mg PO DAILY [facility] Last Admin: 12/24/16 08:37 Dose: 0.3 mg Cyclobenzaprine HCl (Flexeril) 10 mg PO Q6 [facility] Last Admin: 12/24/16 17:30 Dose: 10 mg Docusate Sodium (Colace) 100 mg PO BID [facility] Last Admin: 12/24/16 17:30 Dose: 100 mg Fenofibrate (Tricor) 145 mg PO DAILY [facility] Last Admin: 12/24/16 08:38 Dose: 145 mg Ferrous Sulfate (Feosol) 325 mg PO BID [facility] Last Admin: 12/24/16 17:30 Dose: 325 mg Sodium Chloride (Sodium Chloride 0.45%) 1,000 mls @ 70 mls/hr IV .[id number] [facility] Stop: 12/25/16 17:22 Last Admin: 12/24/16 08:35 Dose: 70 mls/hr Insulin Human Lispro (Humalog) 0 units SC 0630 [facility] PRN Reason: Protocol Last Admin: 12/24/16 07:01 Dose: 1 units Levetiracetam (Keppra) 500 mg PO BID [facility] Last Admin: 12/24/16 17:30 Dose: 500 mg Lidocaine (Lidoderm) 1 ea TD DAILY [facility] Last Admin: 12/24/16 08:38 Dose: 1 ea Metoprolol Tartrate (Lopressor) 25 mg PO Q12 [facility] Last Admin: 12/24/16 08:38 Dose: 25 mg Pantoprazole Sodium (Protonix Ec Tab) 40 mg PO DAILY [facility] Last Admin: 12/24/16 08:38 Dose: 40 mg Prednisone (Prednisone Tab) 20 mg PO DAILY [facility] Stop: 12/26/16 09:46 Last Admin: 12/24/16 11:42 Dose: 20 mg Prednisone (Prednisone Tab) 15 mg PO DAILY [facility] Stop: 12/28/16 09:01 Prednisone (Prednisone Tab) 10 mg PO DAILY [facility] Stop: 12/30/16 09:01 Prednisone (Prednisone Tab) 5 mg PO DAILY [facility] Stop: 01/01/17 09:01 Sodium Bicarbonate (Sodium Bicarbonate Tab) 650 mg PO Q8 [facility] Last Admin: 12/24/16 14:30 Dose: 650 mg - Labs Labs: 12/15/16 05:00 12/24/16 05:25 PT 12.0 SECONDS (9.6-11.2) H 12/11/16 07:16 INR 1.15 (0.92-1.08) H 12/11/16 07:16 APTT 36.9 SECONDS (23.3-32.5) H 12/11/16 07:16
--- NOTE | 2016-12-24 23:56 | PN ---
DATE: 12/24/2016 The patient is located in room 625, bed 1. HISTORY OF PRESENT ILLNESS: The patient is a 61-year-old elderly male with a history of hyp ertension, diabetes, chronic kidney disease, gout, who was admitted with acute CVA to the [facility]. Subsequently, the patient was transferred to acute rehab for physical therapy. The pat ient was complaining of back pain and yesterday patient was complaining severe knee pain and difficul t to ambulate and tender to touch, and patient was found to have uric acid level more than 12.3 and s tarted on Solu-Medrol. The patient received 1 dose of Solu-Medrol 40 mg last night and is feeling mu ch better this morning. Less pain, less tenderness, and unable to bend the knee. Denies any chest p ain, palpitations. Denies any fever or cough. No nausea, vomiting, diarrhea. The patient was parti cipating in physical therapy as per the rehabilitation nurse this evening. PHYSICAL EXAMINATION: VITAL SIGNS: Blood pressure 125/79, pulse 98, respirations 20, temperature 97.6, saturation 97%, hei ght 5 feet 3 inches, and weight is 161 pounds. GENERAL: The patient is a 61-year-old elderly male, moderately built, moderately nourished, not in acute distress. HEENT: Pupils normal, reactive to light and accommodation. Conjunctivae pink. Sclerae anicteric. Tongue is moist. NECK: Trachea is midline. LUNGS: Symmetric on both sides. Bilateral breath sounds present. Clear on auscultation. CARDIOVASCULAR: [place] in the 5th intercostal space midclavicular line. S1 and S2 audible. No murmur or gallop. ABDOMEN: Normal in appearance, soft, tympanic. No guarding, no rigidity, no hepatosplenomegaly. CENTRAL NERVOUS SYSTEM: The patient is alert, awake, oriented x 3, nonfocal on examination. Cranial nerves II-XII grossly intact. Sensory and motor system is grossly within normal limits on the right . Left side, mild weakness both upper and lower extremities, but sensory system is normal on the lef t side. EXTREMITIES: No cyanosis, no clubbing, no edema. The patient has a mild tenderness on the left knee joint with decreased warmth. CURRENT MEDICATIONS: Include as follows: Colace 100 mg p.o. b.i.d., colchicine 0.3 mg p.o. daily, E cotrin 81 mg daily, Feosol 325 mg p.o. b.i.d., Flexeril 10 mg q. 6 hours, Humalog for sliding scale, Keppra 500 mg p.o. b.i.d., Lidoderm patch, Lipitor 40 mg p.o. at bedtime, Lopressor 25 mg p.o. q. 12 hours, prednisone 20 mg p.o. daily for 2 days, prednisone 50 mg p.o. daily for 2 days from 12/26 to 12/28, prednisone 10 mg p.o. daily for 2 days, 12/28 to 12/30, and prednisone 5 mg daily for 2 days, a nd then discontinue, Protonix 40 mg p.o. daily, sodium bicarbonate 650 mg p.o. q. 8 hours, IV fluids half normal saline 0.45 half normal saline at 70 mL per hour. LABORATORY DATA: Include as follows: As of 12/24/2016, sodium 137, potassium 4.9, chloride 103, CO2 19, BUN 72, creatinine 2.7, glucose 175, calcium 9.6, and uric acid 13.4. SUMMARY: The patient is a 61-year-old elderly male with history of longstanding hypertensio n, diabetes, chronic kidney disease stage IV, cerebrovascular accident with left-sided weakness, and left knee pain. 1. His baseline creatinine is about 2.2-2.4. Acute on chronic kidney disease secondary to intravasc ular volume depletion secondary to decreased p.o. intake. 2. Hypertension. Blood pressure is stable. Continue his current medication. 3. Acute gouty arthritis. Continue on tapering dose of steroids. The patient will need allopurinol 100 mg p.o. b.i.d. once tapering dose of steroids is discontinued. 4. Status post cerebrovascular accident with left-sided weakness. Continue physical therapy as per the rehab recommendations. Continue IV fluids. 5. Metabolic acidosis. Continue sodium bicarbonate 650 mg p.o. t.i.d. Will follow with you. Thank you for allowing me to participate in your patient's care. Will repeat BMP, CBC in a.m. Mamta Neff MD cc: [id number] TT: 12/24/2016 23:55:46 Confirmation # [id number] Dictation # [id number] dn
[2016-12-25] MEDS: Insulin Lispro (humaLOG) 100 Units/ml Inj SC SCH (06:01)
[2016-12-25 08:21] LABS: CALCIUM 8.4 mg/dL (8.4-10.2); POTASSIUM 3.9 MMOL/L (3.6-5.0)
[2016-12-25] MEDS: Pantoprazole 40 mg EC Tab PO SCH (09:11)
[2016-12-25] MEDS: Lidocaine 5% Patch TD SCH (09:12)
--- NOTE | 2016-12-25 09:33 | CP.PCM.PN ---
Subjective - Date & Time of Evaluation Date of Evaluation: 12/25/16 Time of Evaluation: 09:32 - Subjective Subjective: pt seen and examined, follow up consult is dictated #[id number] renal function is improving add allopurinol 100 mg po daily d/c colchicine Objective - Vital Signs/Intake and Output Vital Signs (last 24 hours): Temp Pulse Resp BP Pulse Ox 98.1 F 73 20 123/86 97 12/25/16 08:17 12/25/16 09:13 12/25/16 08:17 12/25/16 09:13 12/25/16 08:17 Intake and Output: 12/25/16 12/25/16 06:59 18:59 Intake Total 2080 Output Total 980 Balance 1100 - Medications Medications: Current Medications Allopurinol (Zyloprim) 100 mg PO DAILY [facility] Aspirin (Ecotrin) 81 mg PO DAILY [facility] Last Admin: 12/25/16 09:13 Dose: 81 mg Atorvastatin Calcium (Lipitor) 40 mg PO HS [facility] Last Admin: 12/24/16 21:19 Dose: 40 mg Colchicine (Colocrys) 0.3 mg PO DAILY [facility] Last Admin: 12/25/16 09:11 Dose: 0.3 mg Cyclobenzaprine HCl (Flexeril) 10 mg PO Q6 [facility] Last Admin: 12/25/16 05:58 Dose: 10 mg Docusate Sodium (Colace) 100 mg PO BID [facility] Last Admin: 12/25/16 09:11 Dose: 100 mg Fenofibrate (Tricor) 145 mg PO DAILY [facility] Last Admin: 12/25/16 09:13 Dose: 145 mg Ferrous Sulfate (Feosol) 325 mg PO BID [facility] Last Admin: 12/25/16 09:11 Dose: 325 mg Sodium Chloride (Sodium Chloride 0.45%) 1,000 mls @ 70 mls/hr IV .[id number] [facility] Stop: 12/26/16 17:22 Last Admin: 12/24/16 21:49 Dose: 70 mls/hr Insulin Human Lispro (Humalog) 0 units SC 0630 [facility] PRN Reason: Protocol Last Admin: 12/25/16 06:01 Dose: Not Given Levetiracetam (Keppra) 500 mg PO BID [facility] Last Admin: 12/25/16 09:12 Dose: 500 mg Lidocaine (Lidoderm) 1 ea TD DAILY [facility] Last Admin: 12/25/16 09:12 Dose: 1 ea Metoprolol Tartrate (Lopressor) 25 mg PO Q12 [facility] Last Admin: 12/25/16 09:13 Dose: 25 mg Pantoprazole Sodium (Protonix Ec Tab) 40 mg PO DAILY [facility] Last Admin: 12/25/16 09:11 Dose: 40 mg Prednisone (Prednisone Tab) 20 mg PO DAILY [facility] Stop: 12/26/16 09:46 Last Admin: 12/25/16 09:13 Dose: 20 mg Prednisone (Prednisone Tab) 15 mg PO DAILY [facility] Stop: 12/28/16 09:01 Prednisone (Prednisone Tab) 10 mg PO DAILY [facility] Stop: 12/30/16 09:01 Prednisone (Prednisone Tab) 5 mg PO DAILY [facility] Stop: 01/01/17 09:01 Sodium Bicarbonate (Sodium Bicarbonate Tab) 650 mg PO Q8 [facility] Last Admin: 12/25/16 05:58 Dose: 650 mg - Labs Labs: 12/15/16 05:00 12/25/16 07:43 PT 12.0 SECONDS (9.6-11.2) H 12/11/16 07:16 INR 1.15 (0.92-1.08) H 12/11/16 07:16 APTT 36.9 SECONDS (23.3-32.5) H 12/11/16 07:16
--- NOTE | 2016-12-25 10:23 | PN ---
DATE: 12/25/2016 The patient is located in room 625, bed 1. REQUESTED BY: Dr. Rick Arambula. REASON FOR RENAL FOLLOWUP: Chronic kidney disease, acute renal failure, acute gouty arthritis. HISTORY OF PRESENT ILLNESS: The patient is a 61-year-old elderly male with history of longs tanding hypertension, diabetes, chronic kidney disease, gout, low back pain, was recently admitted to [facility] and found to have acute CVA with left-sided weakness and subsequently transfe rred to acute rehab. The patient is feeling much better, not in acute distress. The patient is out of bed to chair, able to move both legs and able to bend his left knee. Denies any pain in the knee. No shortness of breath, no nausea, vomiting, diarrhea. Less back pain, as per the patient. PHYSICAL EXAMINATION: VITAL SIGNS: This morning as follows: Blood pressure 123/86, pulse 73, respirations 20, temperature 98.1, saturation 97%, height 5 feet 3 inches and weight is 161 pounds. GENERAL: The patient is a 61-year-old male, moderately built, moderately nourished, not in acute distress. HEENT: Pupils normal, reactive to light and accommodation. Conjunctivae pink. Sclerae nonicteric. Tongue is moist. NECK: Trachea is midline. LUNGS: Symmetric on both sides. Bilateral breath sounds present. Clear on auscultation. CARDIOVASCULAR: [place] at the fifth intercostal space midclavicular line. S1 and S2 audible. No murm ur, no gallop. ABDOMEN: Normal in appearance, soft, tympanic. No guarding, no rigidity. No hepatosplenomegaly. CENTRAL NERVOUS SYSTEM: The patient is alert, awake, oriented x 3. Sensory and motor system is ben sly within normal limits. EXTREMITIES: No cyanosis, no clubbing, no edema. The patient has mild weakness on the left side. P ower 4-5/5 on the left side. CURRENT MEDICATIONS: Include as follows: Colace 100 mg p.o. b.i.d., colchicine 0.3 mg p.o. daily, Ecotrin 81 mg daily, Feosol 325 mg p.o. b.i.d., Flexeril 10 mg every 6 hours, Humalog for sliding sca le, Keppra 500 mg p.o. b.i.d., Lidoderm patch, Lipitor 40 mg p.o. at bedtime, Lopressor 25 mg p.o. q. 12 hours, prednisone 20 mg daily, tapering dose to 5 mg every 2 days and then discontinue when patie nt reaches 5 mg p.o. daily for 2 days, Protonix 40 mg daily, sodium bicarbonate 650 p.o. q. 8 hours, IV fluids half normal saline 70 mL per hour, Tricor 145 mg p.o. daily, allopurinol 100 mg p.o. daily. LABORATORY DATA: As of 12/25/2016: Sodium 134, potassium 3.9, chloride 103, CO2 of 20, BUN 76, creati nine 2.4, glucose 118, calcium is 8.4. SUMMARY: The patient is a 61-year-old with a history of hypertension, diabetes, chronic kidney disea se stage IV, with acute cerebrovascular accident and left-sided weakness and acute gouty arthritis. 1. Chronic kidney disease stage IV, acute component, acute kidney injury, chronic kidney disease sec ondary to intravascular volume depletion, decreased p.o. intake. Continue IV fluids half normal sali ne at 70 mL per hour. 2. Hypertension. Blood pressure is stable. Continue his current medications, metoprolol 25 mg p.o. q. 12 hours. 3. Acute gouty arthritis secondary to hyperuricemia. PLAN: Continue tapering dose of steroids and will add allopurinol 100 mg daily and will discontinue colchicine. Continue physical therapy as per the rehabilitation recommendations. The patient is sta ble from the renal standpoint. Thank you for allowing me to participate in your patient's care. Mamta Neff MD cc: [id number] TT: 12/25/2016 10:23:00 Confirmation # [id number] Dictation # [id number] damaris
[2016-12-25] MEDS: Sodium Chloride 0.45% 1,000 ML IV SCH (12:36)
--- NOTE | 2016-12-25 14:32 | CP.PCM.PN ---
Subjective - Date & Time of Evaluation Date of Evaluation: 12/25/16 Time of Evaluation: 11:50 - Subjective Subjective: Pt seen and examined. Claimed he felt okay. Objective - Vital Signs/Intake and Output Vital Signs (last 24 hours): Temp Pulse Resp BP Pulse Ox 98.1 F 73 20 123/86 97 12/25/16 08:17 12/25/16 09:13 12/25/16 08:17 12/25/16 09:13 12/25/16 08:17 Intake and Output: 12/25/16 12/25/16 06:59 18:59 Intake Total 2080 Output Total 980 Balance 1100 - Medications Medications: Current Medications Allopurinol (Zyloprim) 100 mg PO DAILY [facility] Aspirin (Ecotrin) 81 mg PO DAILY [facility] Last Admin: 12/25/16 09:13 Dose: 81 mg Atorvastatin Calcium (Lipitor) 40 mg PO HS [facility] Last Admin: 12/24/16 21:19 Dose: 40 mg Cyclobenzaprine HCl (Flexeril) 10 mg PO Q6 [facility] Last Admin: 12/25/16 12:36 Dose: 10 mg Docusate Sodium (Colace) 100 mg PO BID [facility] Last Admin: 12/25/16 09:11 Dose: 100 mg Fenofibrate (Tricor) 145 mg PO DAILY [facility] Last Admin: 12/25/16 09:13 Dose: 145 mg Ferrous Sulfate (Feosol) 325 mg PO BID [facility] Last Admin: 12/25/16 09:11 Dose: 325 mg Sodium Chloride (Sodium Chloride 0.45%) 1,000 mls @ 70 mls/hr IV .[id number] [facility] Stop: 12/26/16 17:22 Last Admin: 12/25/16 12:36 Dose: 70 mls/hr Insulin Human Lispro (Humalog) 0 units SC 0630 [facility] PRN Reason: Protocol Last Admin: 12/25/16 06:01 Dose: Not Given Levetiracetam (Keppra) 500 mg PO BID [facility] Last Admin: 12/25/16 09:12 Dose: 500 mg Lidocaine (Lidoderm) 1 ea TD DAILY [facility] Last Admin: 12/25/16 09:12 Dose: 1 ea Metoprolol Tartrate (Lopressor) 25 mg PO Q12 [facility] Last Admin: 12/25/16 09:13 Dose: 25 mg Pantoprazole Sodium (Protonix Ec Tab) 40 mg PO DAILY [facility] Last Admin: 12/25/16 09:11 Dose: 40 mg Prednisone (Prednisone Tab) 20 mg PO DAILY [facility] Stop: 12/26/16 09:46 Last Admin: 12/25/16 09:13 Dose: 20 mg Prednisone (Prednisone Tab) 15 mg PO DAILY [facility] Stop: 12/28/16 09:01 Prednisone (Prednisone Tab) 10 mg PO DAILY [facility] Stop: 12/30/16 09:01 Prednisone (Prednisone Tab) 5 mg PO DAILY [facility] Stop: 01/01/17 09:01 Sodium Bicarbonate (Sodium Bicarbonate Tab) 650 mg PO Q8 [facility] Last Admin: 12/25/16 05:58 Dose: 650 mg - Labs Labs: 12/15/16 05:00 12/25/16 07:43 PT 12.0 SECONDS (9.6-11.2) H 12/11/16 07:16 INR 1.15 (0.92-1.08) H 12/11/16 07:16 APTT 36.9 SECONDS (23.3-32.5) H 12/11/16 07:16 - Constitutional Appears: No Acute Distress - Head Exam Head Exam: ATRAUMATIC - Eye Exam Eye Exam: absent: Scleral icterus - ENT Exam ENT Exam: Mucous Membranes Moist - Neck Exam Neck Exam: absent: Meningismus - Respiratory Exam Respiratory Exam: absent: Rhonchi, Wheezes, Respiratory Distress - Cardiovascular Exam Cardiovascular Exam: REGULAR RHYTHM, +S1, +S2 - GI/Abdominal Exam GI & Abdominal Exam: Soft. absent: Tenderness - Rectal Exam Rectal Exam: Deferred - Back Exam Back Exam: NORMAL INSPECTION - Neurological Exam Neurological Exam: Alert, Oriented x3 - Psychiatric Exam Psychiatric exam: Flat Affect - Skin Skin Exam: Dry, Intact Assessment and Plan (1) CVA (cerebral vascular accident) Status: Acute (2) Seizure Status: Acute (3) DM2 (diabetes mellitus, type 2) Status: Chronic (4) UTI (urinary tract infection) Status: Acute (5) HTN (hypertension) Status: Chronic (6) HLD (hyperlipidemia) Status: Chronic (7) CKD (chronic kidney disease) Status: Acute - Assessment and Plan (Free Text) Assessment: 61 yo male with history of HTN, HLD and DM2 admitted to [facility] because of sudden onset of slurring of speech. Imaging was consistent with acute CVA. Patient was sent to Acute Rehab for continued management and therapy. (1) CVA (cerebral vascular accident) Cont ASA 81mg and Lipitor 40mg continue PT, OT and Speech therapy Modified dysphagia diet (2) Seizure Continue Keppra 500 PO BID (3) DM2 (diabetes mellitus, type 2) BS controlled without medication continue diabetic diet (4) UTI resolved (5) HTN (hypertension) BP stable continue Metoprolol 25mg PO q 12hrs (6) HLD (hyperlipidemia) on Lipitor, Tricor (7) LORRI[place] on CKD Dr Neff on renal consult (8) Hyperuricemia r/o Gouty Arthritis continue Allopurinol continue tapering Prednisone
[2016-12-25 22:19] VITALS: RESP 18
[2016-12-26] MEDS: Sodium Chloride 0.45% 1,000 ML IV SCH (02:57)
[2016-12-26] MEDS: Insulin Lispro (humaLOG) 100 Units/ml Inj SC SCH (06:36)
[2016-12-26 07:31] VITALS: BP 120/79; PULSE 86; TEMP 97.7; O2SAT 96
[2016-12-26 08:08] LABS: CALCIUM 9.2 mg/dL (8.4-10.2); POTASSIUM 4.6 MMOL/L (3.6-5.0)
[2016-12-26] MEDS: Lidocaine 5% Patch TD SCH (08:10)
[2016-12-26] MEDS: Pantoprazole 40 mg EC Tab PO SCH (08:11)
--- NOTE | 2016-12-26 10:21 | CP.PCM.DIS ---
Provider - Provider Date of Admission: 12/10/16 20:49 Attending physician: Rick Arambula MD Primary care physician: Dr. Prosper Brooks Consults: Nephrology Dr. River Neff Neurology Dr. Garo House Time Spent in preparation of Discharge (in minutes): 40 Hospital Course - Lab Results Lab Results: Micro Results 12/14/16 17:28 Urine,Clean Catch Urine Culture - Final No Growth (<1,000 CFU/ML) Most Recent Lab Values WBC 10.7 K/uL (4.8-10.8) 12/15/16 05:00 RBC 4.01 Mil/uL (4.40-5.90) L 12/15/16 05:00 Hgb 11.1 g/dL (12.0-18.0) L 12/15/16 05:00 Hct 33.6 % (35.0-51.0) L 12/15/16 05:00 MCV 83.8 fl (80.0-94.0) 12/15/16 05:00 MCH 27.7 pg (27.0-31.0) 12/15/16 05:00 MCHC 33.0 g/dL (33.0-37.0) 12/15/16 05:00 RDW 16.8 % (11.5-14.5) H 12/15/16 05:00 Plt Count 436 K/uL (130-400) H D 12/15/16 05:00 MPV 8.1 fl (7.2-11.7) 12/15/16 05:00 Neut % (Auto) 53.5 % (50.0-75.0) 12/15/16 05:00 Lymph % (Auto) 27.6 % (20.0-40.0) 12/15/16 05:00 [place] % (Auto) 10.8 % (0.0-10.0) H 12/15/16 05:00 Eos % (Auto) 7.3 % (0.0-4.0) H 12/15/16 05:00 Baso % (Auto) 0.8 % (0.0-2.0) 12/15/16 05:00 Neut # 5.7 K/uL (1.8-7.0) 12/15/16 05:00 Lymph # 3.0 K/uL (1.0-4.3) 12/15/16 05:00 [place] # 1.2 K/uL (0.0-0.8) H 12/15/16 05:00 Eos # 0.8 K/uL (0.0-0.7) H 12/15/16 05:00 Baso # 0.1 K/uL (0.0-0.2) 12/15/16 05:00 PT 12.0 SECONDS (9.6-11.2) H 12/11/16 07:16 INR 1.15 (0.92-1.08) H 12/11/16 07:16 APTT 36.9 SECONDS (23.3-32.5) H 12/11/16 07:16 Sodium 140 mmol/l (132-148) 12/26/16 05:30 Potassium 4.6 MMOL/L (3.6-5.0) 12/26/16 05:30 Chloride 107 mmol/L (98-107) 12/26/16 05:30 Carbon Dioxide 20 mmol/L (22-30) L 12/26/16 05:30 Anion Gap 18 (10-20) 12/26/16 05:30 BUN 83 mg/dl (9-20) H 12/26/16 05:30 Creatinine 2.4 mg/dL (0.8-1.5) H 12/26/16 05:30 Est GFR ( Amer) 33 12/26/16 05:30 Est GFR (Non-Af Amer) 28 12/26/16 05:30 POC Glucose (mg/dL) 102 mg/dL (65-110) 12/26/16 05:28 Random Glucose 94 mg/dL (75-110) 12/26/16 05:30 Hemoglobin A1c 6.5 % (4.2-6.5) 12/11/16 07:16 Uric Acid 13.4 mg/Dl (3.5-8.5) H 12/24/16 05:25 Calcium 9.2 mg/dL (8.4-10.2) 12/26/16 05:30 Phosphorus 4.4 mg/dl (2.5-4.5) 12/22/16 05:30 Iron 61 ug/dL (49-181) 12/15/16 05:00 TIBC 242 ug/dL (250-450) L 12/15/16 05:00 % Saturation 25 % (20-55) 12/15/16 05:00 Ferritin 1430.0 ng/mL 12/15/16 05:00 Total Bilirubin 0.6 mg/dl (0.2-1.3) 12/11/16 07:16 AST 52 U/L (17-59) 12/11/16 07:16 ALT 35 U/L (21-72) 12/11/16 07:16 Alkaline Phosphatase 151 U/L (38-126) H 12/11/16 07:16 Total Protein 8.1 G/DL (6.3-8.2) 12/11/16 07:16 Albumin 3.3 g/dL (3.5-5.0) L 12/11/16 07:16 Globulin 4.8 gm/dL (2.2-3.9) H 12/11/16 07:16 Albumin/Globulin Ratio 0.7 (1.0-2.1) L 12/11/16 07:16 PTH Intact Whole Molec 30 pg/mL (14-64) 12/17/16 06:44 HENNY Screen Negative (Negative) 12/17/16 06:44 HENNY Titer TEST NOT PERFORMED 12/17/16 06:44 HENNY Titer 2 TEST NOT PERFORMED 12/17/16 06:44 HENNY Pattern TEST NOT PERFORMED 12/17/16 06:44 HENNY Pattern 2 TEST NOT PERFORMED 12/17/16 06:44 Complement C3 126.0 mg/dL (88.0-165.0) 12/17/16 06:44 Complement C4 73.9 mg/dL (14.0-44.0) H 12/17/16 06:44 Hep Bs Antigen Negative (NEGATIVE) 12/19/16 05:30 Hep Bs Antibody Negative (NEGATIVE) 12/17/16 06:44 Hepatitis C Antibody Negative (NEGATIVE) 12/17/16 06:44 - Hospital Course Hospital Course: 61 y/o male (PMHx significant for HTN, HLD, CKD4 and DM2) who came to [facility] from [place] for rehab after he was admitted there for CVA as well as for a UTI. Briefly, patient was admitted to [facility] on 12/06/16 for slurred speech of sudden onset upon waking from sleep. He did not receive TPA. He had imaging consistent with CVA, and continued to have some slurred speech upon presentation to [facility] but denies any assymetric weakness or gait abnormality. Was noted to apparently have seizures and started on AEDs. Please see individual Assessment and Plan below. CT head at [facility]: no acute findings MRI: L mid frontal lobe infarct Carotid dopplers: 20-39% proximal ICA stenoses EEG b/l diffuse cerebral dysfunction ROS Chronic LBP that is pinching in nature especially if sitting for prolonged time and then moving to try and get up (past 4 months) Chronic Left Knee Pain (worse after PT) NO other complaints upon FULL ROS: NO chest pain, NO palpitations, NO SOB/COUGH/ Wheezing, NO abdominal pain, NO n/v/d/c, NO burning/pain with urination, NO lightheadedness/dizziness, NO headache, NO new changes in vision/eye pain, NO new changes in hearing/ear pain, NO edema, NO paresthesias Exam: General: AAOx3, NAD HEENT: NCA, EOMI, PERRLA, NO cervical lymphadenopathy, NO thyromegaly, NO pharyngeal erythema/exudate, Oral Mucosa and Nasal Turbinates are moist Cardiology: NS1 and NS2, NO M/R/G Respiratory: CTA B/L, NO R/R/W GI: BSx4, Soft, NT, Central Obesity (could not adequately palpate the liver and spleen), NO guarding/rebound tenderness Ext: Pulses are strong and equal, NO edema, Capillary Refill is 2 seconds Neurology: CN II through XII are grossly intact. I did not notice slurred speech. 5/5 strength with flexion and extension in B/L UE and LE (although hesitant on the left secondary to left knee pain) Assessment and Plan: 1). CVA ASA 81 mg PO 1x/day Lipitor 40 mg PO QHS Tricor 145 mg PO 1x/day Will need to follow up with Neurology Dr. Garo House as outpatient 2). Hx HTN Lopressor 25 mg PO Q12H Controlled 3). Hx Seizure Keppra 500 mg PO 2x/day Will need to follow up with Neurology Dr. Garo House as outpatient 4). Hx DM 2 Lispro ISS at 6:30 AM which he has not required and therefore will not be discharged on. Controlled Patient can not recall what he was taking at home. His highest blood glucose since the 12/10/16 was 197 at 9 PM. However, his blood glucose has been predominantly below 150s even with Prednisone treatment ( for the Left Knee Gout: see below). Therefore he was not discharge on any medication for this issue and will need to follow up with his PMD Dr. Prosper Brooks 5). Hx UTI Repeat Urine Culture 12/14/16 was negative and therefore antibiotic (Ampicillin was discontinued). Resolved 6). Hx Gout/Left Knee Colchicine 0.3 mg PO 1x/day but this was changed to Allupurinol 100 mg PO 1x/day Lidoderm 1 patch TD 1x/day as needed for Pain Prednisone 15 mg PO 1x/day (12/27/16) Prednisone 10 mg PO 1x/day (12/28/16 and 12/29/16) Prednisone 5 mg PO 1x/day (12/30/16 and 12/31/16) 7). Hx Anemia Secondary to CKD Stage IV Feosol 325 mg PO 2x/day Sodium Bicarbonate 650 mg PO 1x/day HgB/Hct Stable BUN/Cr and eGFR are stable He will need to follow up with Diaper F[facility] Dr. Neff 8). Prophylactic Measures Tylenol 650 mg PO Q6H PRN Pain 4-10 Pepcid 20 mg PO 2x/day while on the Prednisone Taper The following instructions will be provided to patient upon discharge in the form of this Discharge Summary which he has been instructed to bring with him to his appointments: 1). Follow up with your primary care doctor Dr. Prosper Brooks on 12/28/16 at 2:30 PM located at [address], [place] 2). Bring this discharge summary with you to your appointment with Dr. Prosper Brooks for his review. 3). Please schedule follow up with Neurologist Dr. Garo House by calling his office [phone]. This appointment should take place in the next 7 to 10 days. 4). Please schedule follow up with Dia[facility] F[facility] Dr. River Neff by calling his office [phone]. This appointment should take place in the next 7 to 10 days. 5). finishing area supervisor the following prescriptions from your pharmacy [facility] located at [address] in [place], [place]. These are the medications that you should be on until further instructed by Dr. Prosper Brooks, whom you must also contact in the future for refills: Lipitor 40 mg 1 tablet by mouth 1x/day at night Tricor 145 mg 1 tablet by mouth 1x/day Lopressor 25 mg 1 tablet by mouth every 12 hours Keppra 500 mg 1 tablet by mouth every 12 hours Allopurinol 100 mg 1 tablet by mouth 1x/day Feosol 325 mg 1 tablet by mouth 2x/day Sodium Bicarbonate 650 mg 1 tablet by mouth every 8 hours Lidoderm Patch 1 Patch to the Left Knee 1x/day ONLY NEEDED for Severe Pain Prednisone 15 mg 1 tablet by mouth 1x/day (12/27/16) Prednisone 10 mg 1 tablet by mouth 1x/day (12/28/16 and 12/29/16) Prednisone 5 mg 1 tablet by mouth 1x/day (12/30/16 and 12/31/16) Pepcid 20 mg 1 tablet by mouth 2x/day until you finish the Prednisone 6). You must also take a Aspirin 81 mg 1 tablet by mouth 1x/day. You much purchase this without a prescription at your pharmacy 7). You may also take Tylenol 500 mg 1 tablet by mouth every 6 hours as needed for mild to moderate left knee pain. You may purchase this medication without a prescription at your pharmacy. 8). You have been referred to [facility] for home Physical Therapy/Occupation Therapy and for Home Health Aid. Please call [facility] on 12/28/16 at to see when they will be first coming to your house. Marin Carrasquillo D.O. Discharge Exam - Head Exam Head Exam: ATRAUMATIC Discharge Plan - Discharge Medications Prescriptions: Allopurinol [Zyloprim] 100 mg PO DAILY #30 tab Atorvastatin [Lipitor] 40 mg PO DIN #30 Famotidine [Pepcid] 20 mg PO BID #8 tab Fenofibrate Nanocrystallized [Tricor] 145 mg PO DAILY #30 Ferrous Sulfate [Feosol] 325 mg PO BID #60 tab levETIRAcetam [Keppra] 500 mg PO BID #60 tab Lidocaine 5% [Lidoderm] 1 ea TD DAILY PRN #7 PRN Reason: Pain, Severe (8-10) Metoprolol Tartrate [Lopressor] 25 mg PO Q12 #60 tab predniSONE [predniSONE Tab] 10 mg PO DAILY #2 tab predniSONE [predniSONE Tab] 15 mg PO DAILY #1 tab predniSONE [predniSONE Tab] 5 mg PO DAILY #2 tab Sodium Bicarbonate Tab 650 mg PO Q8 #90 tab - Follow Up Plan Condition: GOOD Disposition: HOME/ ROUTINE Instructions: Urinary Tract Infection in Women (DC), Urinary Tract Infection in Men (DC), Renal Failure Diet (DC), Dysuria (GEN), Hypertension (DC), Hypertension (GEN)
--- NOTE | 2016-12-26 11:32 | CP.PCM.PN ---
Subjective - Date & Time of Evaluation Date of Evaluation: 12/26/16 Time of Evaluation: 11:32 - Subjective Subjective: pt seen and examined, follow up consult is dictated #[id number] Objective - Vital Signs/Intake and Output Vital Signs (last 24 hours): Temp Pulse Resp BP Pulse Ox 97.7 F 86 18 120/79 96 12/26/16 07:30 12/26/16 08:13 12/26/16 07:30 12/26/16 08:13 12/26/16 07:30 Intake and Output: 12/26/16 12/26/16 06:59 18:59 Intake Total 1190 Output Total 450 Balance 740 - Medications Medications: Current Medications Allopurinol (Zyloprim) 100 mg PO DAILY [facility] Last Admin: 12/26/16 08:11 Dose: 100 mg Aspirin (Ecotrin) 81 mg PO DAILY [facility] Last Admin: 12/26/16 08:11 Dose: 81 mg Atorvastatin Calcium (Lipitor) 40 mg PO HS [facility] Last Admin: 12/25/16 21:29 Dose: 40 mg Cyclobenzaprine HCl (Flexeril) 10 mg PO Q6 [facility] Last Admin: 12/26/16 06:14 Dose: 10 mg Docusate Sodium (Colace) 100 mg PO BID [facility] Last Admin: 12/26/16 08:11 Dose: Not Given Famotidine (Pepcid) 20 mg PO BID [facility] Stop: 12/31/16 17:00 Fenofibrate (Tricor) 145 mg PO DAILY [facility] Last Admin: 12/26/16 08:11 Dose: 145 mg Ferrous Sulfate (Feosol) 325 mg PO BID [facility] Last Admin: 12/26/16 08:10 Dose: 325 mg Sodium Chloride (Sodium Chloride 0.45%) 1,000 mls @ 70 mls/hr IV .[id number] [facility] Stop: 12/26/16 17:22 Last Admin: 12/26/16 02:57 Dose: 70 mls/hr Insulin Human Lispro (Humalog) 0 units SC 0630 [facility] PRN Reason: Protocol Last Admin: 12/26/16 06:36 Dose: Not Given Levetiracetam (Keppra) 500 mg PO BID [facility] Last Admin: 12/26/16 08:11 Dose: 500 mg Lidocaine (Lidoderm) 1 ea TD DAILY [facility] Last Admin: 12/26/16 08:10 Dose: 1 ea Metoprolol Tartrate (Lopressor) 25 mg PO Q12 [facility] Last Admin: 12/26/16 08:13 Dose: 25 mg Pantoprazole Sodium (Protonix Ec Tab) 40 mg PO DAILY [facility] Last Admin: 12/26/16 08:11 Dose: 40 mg Prednisone (Prednisone Tab) 15 mg PO DAILY [facility] Stop: 12/28/16 09:01 Last Admin: 12/26/16 08:10 Dose: 15 mg Prednisone (Prednisone Tab) 10 mg PO DAILY [facility] Stop: 12/30/16 09:01 Prednisone (Prednisone Tab) 5 mg PO DAILY [facility] Stop: 01/01/17 09:01 Sodium Bicarbonate (Sodium Bicarbonate Tab) 650 mg PO Q8 [facility] Last Admin: 12/26/16 06:14 Dose: 650 mg - Labs Labs: 12/15/16 05:00 12/26/16 05:30 PT 12.0 SECONDS (9.6-11.2) H 12/11/16 07:16 INR 1.15 (0.92-1.08) H 12/11/16 07:16 APTT 36.9 SECONDS (23.3-32.5) H 12/11/16 07:16
--- NOTE | 2016-12-26 12:31 | PN ---
DATE: 12/26/2016 The patient is located in room 625, bed 1. REQUESTED BY: Dr. Rick Arambula. REASON FOR FOLLOWUP: Acute renal failure, chronic kidney disease stage IV. HISTORY OF PRESENT ILLNESS: The patient is a 61-year-old elderly male with history of longs tanding hypertension, diabetes, hyperlipidemia, chronic kidney disease stage IV, gout and status post clotted AV fistula who was admitted to [facility] recently for acute CVA. Subsequently, transferred to subacute rehab in [facility]. The patient is feeling much bet ter, not in acute distress, denies any headache, dizziness. Denies any chest pain, palpitations. De nies any fever, cough. The patient is able to ambulate, less pain in the left knee once patient was started on steroids, on tapering dose, no complaints at this time. PHYSICAL EXAMINATION: VITAL SIGNS: This morning as follows: Blood pressure 120/79, pulse 86, respirations 18, temperature 97.7, saturation is 97% on room air, and height 5 feet 3 inches and weight is 160 pounds. GENERAL: The patient is a 61-year-old elderly male, moderately built, moderately nourished, not in a cute distress. HEENT: Pupils normal, reactive to light and accommodation. Conjunctivae pink. Sclerae anicteric. Tongue is moist. NECK: Trachea is midline. LUNGS: Symmetric on both sides. Bilateral breath sounds present. Clear on auscultation. CARDIOVASCULAR: [place] in the fifth intercostal space midclavicular line. S1 and S2 audible. No murm ur or gallop. ABDOMEN: Normal in appearance, soft, tympanic. No guarding, no rigidity. No hepatosplenomegaly. CENTRAL NERVOUS SYSTEM: The patient is alert, awake, oriented x 3. Sensory and motor system is ben sly within normal limits. EXTREMITIES: No cyanosis, no clubbing, no edema. Power on the left side is 5/5, right side 5/5. LABORATORY DATA: Include as follows as of 12/26/2016. Sodium 140, potassium 4.9, chloride 107, CO2 2 0, BUN 83, creatinine 2.4, glucose 94, calcium 9.2. SUMMARY: The patient is a 61-year-old elderly male with hypertension, diabetes, hyperlipidemia, strategic communications manager mike kidney disease, low back pain and gout, status post cerebrovascular accident. 1. Acute renal failure on chronic kidney disease. Renal function is back to his baseline about 2-2. 4 and increased azotemia is most likely secondary to steroids. 2. Status post acute gouty arthritis of the knee. The patient is feeling much better with steroids and we will continue tapering dose of steroids and also allopurinol 100 mg p.o. daily. 3. Hypertension. Blood pressure is under control. Continue his current medications, Lopressor 25 m g p.o. q. 12 hours. 4. Hyperlipidemia. Continue with Lipitor 40 mg p.o. at bedtime and also cerebrovascular accident st atus post with left-sided weakness. PLAN: Continue Keppra, Flexeril as per the neurology recommendations. Also continue with Feosol, Ec otrin, Colace, Pepcid and sodium bicarbonate and Tricor. The patient can follow up with his primary reuse technician. If he likes, he can call my office for an a ppointment. Thank you for allowing me to participate in your patient's care. Mamta Neff MD cc: [id number] TT: 12/26/2016 12:30:01 Confirmation # [id number] Dictation # [id number] jn
--- NOTE | 2016-12-29 14:14 | CP.PCM.DIS ---
Provider - Provider Date of Admission: 12/10/16 20:49 Attending physician: Rick Arambula MD Consults: 12/11/16 08:00 Case Management Referral Routine Comment: Physician Instructions: Reason For Exam: anticipated discharge needs Reason for Referral: Discharge Planning Pastoral Care Referral Routine Comment: Physician Instructions: Reason For Exam: Patient would like a visit from a natural gas inspector Pharmacist Consult As Ordered Comment: Physician Instructions: Reason For Exam: patient on Heparin, has > 10 medications Social Work Referral Routine Comment: discharge planning Physician Instructions: Reason For Exam: Anticipated discharge needs Time Spent in preparation of Discharge (in minutes): 5 Store Clerk Discharge Summary - Review of Plan of Care Physical Therapy: Attained Occupational Therapy: Attained Recreational Therapy: Attained - Goal Attainment Status on discharge: Greater than 200 Feet Assistive device: Rolling Walker Level of assistance: Supervision ADL: Attained Level of assistance: Supervision Transfer: Attained Level of assistance: Supervision - Barriers to discharge identified [X]: No significant barriers to discharge this patient. - Plan for patients rehabilitation in the Home: Physical Therapy Discharge instructions provided to patient and family: Instructions with medications, Follow up with PMD and/or surgeon Hospital Course - Lab Results Lab Results: Micro Results 12/14/16 17:28 Urine,Clean Catch Urine Culture - Final No Growth (<1,000 CFU/ML) Most Recent Lab Values WBC 10.7 K/uL (4.8-10.8) 12/15/16 05:00 RBC 4.01 Mil/uL (4.40-5.90) L 12/15/16 05:00 Hgb 11.1 g/dL (12.0-18.0) L 12/15/16 05:00 Hct 33.6 % (35.0-51.0) L 12/15/16 05:00 MCV 83.8 fl (80.0-94.0) 12/15/16 05:00 MCH 27.7 pg (27.0-31.0) 12/15/16 05:00 MCHC 33.0 g/dL (33.0-37.0) 12/15/16 05:00 RDW 16.8 % (11.5-14.5) H 12/15/16 05:00 Plt Count 436 K/uL (130-400) H D 12/15/16 05:00 MPV 8.1 fl (7.2-11.7) 12/15/16 05:00 Neut % (Auto) 53.5 % (50.0-75.0) 12/15/16 05:00 Lymph % (Auto) 27.6 % (20.0-40.0) 12/15/16 05:00 [place] % (Auto) 10.8 % (0.0-10.0) H 12/15/16 05:00 Eos % (Auto) 7.3 % (0.0-4.0) H 12/15/16 05:00 Baso % (Auto) 0.8 % (0.0-2.0) 12/15/16 05:00 Neut # 5.7 K/uL (1.8-7.0) 12/15/16 05:00 Lymph # 3.0 K/uL (1.0-4.3) 12/15/16 05:00 [place] # 1.2 K/uL (0.0-0.8) H 12/15/16 05:00 Eos # 0.8 K/uL (0.0-0.7) H 12/15/16 05:00 Baso # 0.1 K/uL (0.0-0.2) 12/15/16 05:00 PT 12.0 SECONDS (9.6-11.2) H 12/11/16 07:16 INR 1.15 (0.92-1.08) H 12/11/16 07:16 APTT 36.9 SECONDS (23.3-32.5) H 12/11/16 07:16 Sodium 140 mmol/l (132-148) 12/26/16 05:30 Potassium 4.6 MMOL/L (3.6-5.0) 12/26/16 05:30 Chloride 107 mmol/L (98-107) 12/26/16 05:30 Carbon Dioxide 20 mmol/L (22-30) L 12/26/16 05:30 Anion Gap 18 (10-20) 12/26/16 05:30 BUN 83 mg/dl (9-20) H 12/26/16 05:30 Creatinine 2.4 mg/dL (0.8-1.5) H 12/26/16 05:30 Est GFR ( Amer) 33 12/26/16 05:30 Est GFR (Non-Af Amer) 12/26/16 05:30 POC Glucose (mg/dL) 102 mg/dL (65-110) 12/26/16 05:28 Random Glucose 94 mg/dL (75-110) 12/26/16 05:30 Hemoglobin A1c 6.5 % (4.2-6.5) 12/11/16 07:16 Uric Acid 13.4 mg/Dl (3.5-8.5) H 12/24/16 05:25 Calcium 9.2 mg/dL (8.4-10.2) 12/26/16 05:30 Phosphorus 4.4 mg/dl (2.5-4.5) 12/22/16 05:30 Iron 61 ug/dL (49-181) 12/15/16 05:00 TIBC 242 ug/dL (250-450) L 12/15/16 05:00 % Saturation 25 % (20-55) 12/15/16 05:00 Ferritin 1430.0 ng/mL 12/15/16 05:00 Total Bilirubin 0.6 mg/dl (0.2-1.3) 12/11/16 07:16 AST 52 U/L (17-59) 12/11/16 07:16 ALT 35 U/L (21-72) 12/11/16 07:16 Alkaline Phosphatase 151 U/L (38-126) H 12/11/16 07:16 Total Protein 8.1 G/DL (6.3-8.2) 12/11/16 07:16 Albumin 3.3 g/dL (3.5-5.0) L 12/11/16 07:16 Globulin 4.8 gm/dL (2.2-3.9) H 12/11/16 07:16 Albumin/Globulin Ratio 0.7 (1.0-2.1) L 12/11/16 07:16 PTH Intact Whole Molec 30 pg/mL (14-64) 12/17/16 06:44 HENNY Screen Negative (Negative) 12/17/16 06:44 HENNY Titer TEST NOT PERFORMED 12/17/16 06:44 HENNY Titer 2 TEST NOT PERFORMED 12/17/16 06:44 HENNY Pattern TEST NOT PERFORMED 12/17/16 06:44 HENNY Pattern 2 TEST NOT PERFORMED 12/17/16 06:44 Complement C3 126.0 mg/dL (88.0-165.0) 12/17/16 06:44 Complement C4 73.9 mg/dL (14.0-44.0) H 12/17/16 06:44 Hep Bs Antigen Negative (NEGATIVE) 12/19/16 05:30 Hep Bs Antibody Negative (NEGATIVE) 12/17/16 06:44 Hepatitis C Antibody Negative (NEGATIVE) 12/17/16 06:44 Discharge Exam - Head Exam Head Exam: ATRAUMATIC Discharge Plan - Discharge Medications Prescriptions: Allopurinol [Zyloprim] 100 mg PO DAILY #30 tab Atorvastatin [Lipitor] 40 mg PO DIN #30 Famotidine [Pepcid] 20 mg PO BID #8 tab Fenofibrate Nanocrystallized [Tricor] 145 mg PO DAILY #30 Ferrous Sulfate [Feosol] 325 mg PO BID #60 tab levETIRAcetam [Keppra] 500 mg PO BID #60 tab Lidocaine 5% [Lidoderm] 1 ea TD DAILY PRN #7 PRN Reason: Pain, Severe (8-10) Metoprolol Tartrate [Lopressor] 25 mg PO Q12 #60 tab predniSONE [predniSONE Tab] 10 mg PO DAILY #2 tab predniSONE [predniSONE Tab] 15 mg PO DAILY #1 tab predniSONE [predniSONE Tab] 5 mg PO DAILY #2 tab Sodium Bicarbonate Tab 650 mg PO Q8 #90 tab - Follow Up Plan Condition: GOOD Disposition: HOME/ ROUTINE Instructions: Urinary Tract Infection in Men (DC), Renal Failure Diet (DC), Ischemic Stroke (DC), Dysuria (GEN), Hypertension (DC), Hypertension (GEN), Stroke (DC)
== END 2016-12-26 13:15 | disposition home or self-care (01) | DRG 57 ==
PROVIDERS: ADMIT Internal Medicine; ATTEND Internal Medicine
PROC: F08Z4ZZ Home Management Treatment (ICD-10-PCS; principal; 2016-12-10)
PROC: F07Z9FZ Gait Training/Functional Ambulation Treatment using Assistive, Adaptive, Supportive or Protective Equipment (ICD-10-PCS; 2016-12-10)
PROC: F07L6FZ Therapeutic Exercise Treatment of Musculoskeletal System - Lower Back / Lower Extremity using Assistive, Adaptive, Supportive or Protective Equipment (ICD-10-PCS; 2016-12-10)
PROC: F06Z3ZZ Aphasia Treatment (ICD-10-PCS; 2016-12-10)
DX: I69.351 Hemiplegia and hemiparesis following cerebral infarction affecting right dominant side (principal); E87.2 Acidosis; N17.9 Acute kidney failure, unspecified; E11.22 Type 2 diabetes mellitus with diabetic chronic kidney disease; N18.4 Chronic kidney disease, stage 4 (severe); I69.354 Hemiplegia and hemiparesis following cerebral infarction affecting left non-dominant side; N39.0 Urinary tract infection, site not specified; D63.1 Anemia in chronic kidney disease; E11.65 Type 2 diabetes mellitus with hyperglycemia; E78.5 Hyperlipidemia, unspecified; E87.5 Hyperkalemia; I12.9 Hypertensive chronic kidney disease with stage 1 through stage 4 chronic kidney disease, or unspecified chronic kidney disease; G89.29 Other chronic pain; G40.909 Epilepsy, unspecified, not intractable, without status epilepticus; I69.328 Other speech and language deficits following cerebral infarction; E83.59 Other disorders of calcium metabolism; N29 Other disorders of kidney and ureter in diseases classified elsewhere; M54.30 Sciatica, unspecified side; E86.0 Dehydration; M10.9 Gout, unspecified